=== PATIENT | male | born 1930 | race Two or more races ===

== ENCOUNTER 2017-03-02 13:22 | Inpatient (IN) | payer OTHER, MEDICAID ==
[~2017-03-02] VITALS: Ht 162.6 cm; Wt 63.0 kg
[2017-03-02 13:32] VITALS: BP 112/86
[2017-03-02 14:09] LABS: HEMATOCRIT 40.7 % (42.0-52.0); HEMOGLOBIN 13.4 G/DL (14.2-18.0); MEAN CORPUSCULAR VOLUME 93 FL (80-99); PLATELET COUNT 161 K/UL (150-450); RED BLOOD COUNT 4.38 M/UL (4.70-6.10); RED CELL DISTRIBUTION WIDTH 12.4 % (11.6-14.8); WHITE BLOOD COUNT 5.8 K/UL (4.8-10.8)
[2017-03-02] MEDS ORDERED: SandoSTATIN 50mcg Inj SUBQ ONE (14:15)
[2017-03-02 14:21] LABS: ANION GAP 8 mmol/L (5-15); BLOOD UREA NITROGEN 23 mg/dL (7-18); CALCIUM 7.6 MG/DL (8.5-10.1); CARBON DIOXIDE 26 MMOL/L (21-32); CHLORIDE 104 MMOL/L (98-107); CREATININE 1.3 MG/DL (0.55-1.30); POTASSIUM 4.1 MMOL/L (3.5-5.1); SODIUM 138 MMOL/L (136-145)
[2017-03-02 14:26] LABS: ALANINE AMINOTRANSFERASE 13 U/L (12-78); ALBUMIN 2.6 G/DL (3.4-5.0); ALBUMIN/GLOBULIN RATIO 0.6 (1.0-2.7); ALKALINE PHOSPHATASE 71 U/L (46-116); ASPARTATE AMINO TRANSFERASE 43 U/L (15-37); BILIRUBIN,TOTAL 0.5 MG/DL (0.2-1.0)
--- NOTE | 2017-03-02 14:39 | Emergency Room Report ---
History of Present Illness General Chief Complaint: Abnormal Labs Source: Patient, Family Member, Medical Record Present Illness HPI Patient is a 86-year-old male brought in by EMS after low blood sugar. Patient was noted be altered initially with a sugar in the 30s the patient had been given D50 by EMS. Patient had cough for long time. He had been taking oral medications for blood sugar. He had improvement to baseline after D50. He had less than usual food consumption. Allergies: Coded Allergies: No Known Allergies (Verified , 09/12/10) Patient History Reviewed Nursing Documentation: PMH: Agreed, PSxH: Agreed Nursing Documentation-PMH Past Medical History: No History, Except For Hx Diabetes: Yes Review of Systems All Other Systems: negative except mentioned in HPI Physical Exam Vital Signs Date Time Temp Pulse Resp B/P (MAP) Pulse Ox O2 Delivery O2 Flow Rate FiO2 03/02/17 13:15 98.2 82 16 112/86 98 Room Air Sp02 EP Interpretation: reviewed, normal General Appearance: normal inspection, well appearing, no apparent distress, alert Head: atraumatic ENT: normal ENT inspection, hearing grossly normal, normal voice Neck: normal inspection, full range of motion, supple, no bony tend Respiratory: normal inspection, lungs clear, normal breath sounds, no respiratory distress, no retraction, no wheezing Cardiovascular #1: regular rate, rhythm, no edema Gastrointestinal: normal inspection, normal bowel sounds, non tender, soft, no guarding, no hernia Genitourinary: no CVA tenderness Musculoskeletal: normal inspection, back normal, normal range of motion Neurologic: normal inspection, alert, responsive, speech normal Psychiatric: normal inspection, judgement/insight normal, mood/affect normal Skin: normal inspection, normal color, no rash Medical Decision Making Diagnostic Impression: Primary Impression: Hypoglycemia secondary to sulfonylurea Additional Impression: Chronic lung disease ER Course Patient 86-year-old male who low blood sugar. Differential diagnoses include was not limited to dietary noncompliance, medication overdose, sepsis, renal failure, among others.Because of complexity of patient's case laboratory testing and imaging studies were ordered.Patient was given oral glucose containing fluids. The patient was noted to have baseline mental status. Patient noted have decreased the blood sugar to 90 after the juice. Patient was given Sandostatin. The patient will likely require inpatient observation due to the recurrent drop in blood sugar and poor by mouth intake. Patient was started on a D10 drip. Dr. Ferrari was contacted for inpatient management due to panel physician. Labs Test 03/02/17 13:54 White Blood Count 5.8 K/UL (4.8-10.8) Red Blood Count 4.38 M/UL (4.70-6.10) Hemoglobin 13.4 G/DL (14.2-18.0) Hematocrit 40.7 % (42.0-52.0) Mean Corpuscular Volume 93 FL (80-99) Mean Corpuscular Hemoglobin 30.6 PG (27.0-31.0) Mean Corpuscular Hemoglobin Concent 32.9 G/DL (32.0-36.0) Red Cell Distribution Width 12.4 % (11.6-14.8) Platelet Count 161 K/UL (150-450) Mean Platelet Volume 7.4 FL (6.5-10.1) Neutrophils (%) (Auto) % (45.0-75.0) Lymphocytes (%) (Auto) % (20.0-45.0) Monocytes (%) (Auto) % (1.0-10.0) Eosinophils (%) (Auto) % (0.0-3.0) Basophils (%) (Auto) % (0.0-2.0) Differential Total Cells Counted 100 Neutrophils % (Manual) 81 % (45-75) Lymphocytes % (Manual) 4 % (20-45) Monocytes % (Manual) 7 % (1-10) Eosinophils % (Manual) 0 % (0-3) Basophils % (Manual) 0 % (0-2) Band Neutrophils 8 % (0-8) Platelet Estimate Adequate Platelet Morphology Normal Red Blood Cell Morphology Normal Sodium Level 138 MMOL/L (136-145) Potassium Level 4.1 MMOL/L (3.5-5.1) Chloride Level 104 MMOL/L (98-107) Carbon Dioxide Level 26 MMOL/L (21-32) Anion Gap 8 mmol/L (5-15) Blood Urea Nitrogen 23 mg/dL (7-18) Creatinine 1.3 MG/DL (0.55-1.30) Estimat Glomerular Filtration Rate mL/min (>60) Glucose Level 95 MG/DL (74-106) Calcium Level 7.6 MG/DL (8.5-10.1) Total Bilirubin 0.5 MG/DL (0.2-1.0) Aspartate Amino Transf (AST/SGOT) 43 U/L (15-37) Alanine Aminotransferase (ALT/SGPT) 13 U/L (12-78) Alkaline Phosphatase 71 U/L (46-116) Troponin I 0.001 ng/mL (0.000-0.056) Total Protein 7.0 G/DL (6.4-8.2) Albumin 2.6 G/DL (3.4-5.0) Globulin 4.4 g/dL Albumin/Globulin Ratio 0.6 (1.0-2.7) EKG Diagnostic Results Rate: normal Rhythm: NSR ST Segments: no acute changes Last Vital Signs Date Time Temp Pulse Resp B/P (MAP) Pulse Ox O2 Delivery O2 Flow Rate FiO2 03/02/17 13:32 98.2 16 112/86 98 Room Air 03/02/17 13:15 82 Status: unchanged Disposition: ADMITTED INPATIENT Condition: Serious Germán Kong Mar 02, 2017 14:39
[2017-03-02] MEDS ORDERED: D5NS 1,000 ML IV SCH (15:30)
[2017-03-02] MEDS ORDERED: cefTRIAXone 1 GM in NS 55 ML IVPB ONE (16:00)
[2017-03-02] MEDS ORDERED: Dextrose 10% 1,000 ML IV SCH (16:30)
[2017-03-02] MEDS ORDERED: GLIPIZIDE10 MG PO (17:41)
[2017-03-02] MEDS ORDERED: METFORMIN HCL500 M5 PO (17:42)
[2017-03-02 17:43] VITALS: BP 114/79
[2017-03-02] MEDS ORDERED: Zolpidem 5mg tab ORAL PRN (18:45)
[2017-03-02] MEDS ORDERED: Albuterol/Ipratropium 3ml neb HHN PRN (18:45)
[2017-03-02 20:00] VITALS: BP 120/60
[2017-03-02] MEDS: Heparin 5000 units/ml inj SUBQ SCH (20:16)
[2017-03-02] MEDS: D5 1/2NS 1,000 ML IV SCH (20:16)
[2017-03-02 21:00] VITALS: BP 120/60
[2017-03-02] MEDS: NovoLOG Insulin Flexpen SUBQ SCH (21:16)
[2017-03-03] VITALS: BP 94/58
[2017-03-03 04:00] VITALS: BP 129/61
[2017-03-03] MEDS: NovoLOG Insulin Flexpen SUBQ SCH ×4 (05:42→21:00)
[2017-03-03 07:32] LABS: HEMOGLOBIN 13.4 G/DL (14.2-18.0); MEAN CORPUSCULAR VOLUME 91 FL (80-99); PLATELET COUNT 145 K/UL (150-450); RED CELL DISTRIBUTION WIDTH 12.3 % (11.6-14.8); WHITE BLOOD COUNT 5.2 K/UL (4.8-10.8)
[2017-03-03 07:40] LABS: ANION GAP 6 mmol/L (5-15); BLOOD UREA NITROGEN 16 mg/dL (7-18); CALCIUM 7.1 MG/DL (8.5-10.1); CARBON DIOXIDE 27 MMOL/L (21-32); CHLORIDE 100 MMOL/L (98-107); CREATININE 1.2 MG/DL (0.55-1.30); POTASSIUM 3.7 MMOL/L (3.5-5.1); SODIUM 133 MMOL/L (136-145)
[2017-03-03 08:00] VITALS: BP 128/75
[2017-03-03] MEDS: Heparin 5000 units/ml inj SUBQ SCH ×2 (09:00→21:00)
[2017-03-03] MEDS: D5 1/2NS 1,000 ML IV SCH ×2 (09:11→21:55)
--- NOTE | 2017-03-03 09:11 | History & Physical ---
History and Physical History & Physicial 86 year old male presents with persistent hypoglycemia. patient given repeated doses of D50 in the ER but sugars repeatedly dropped. Patient with chronic lung disease as well and noted to have chronic congestion. Last night, patient reportedly had a fever. patient was admitted due to persistent hypoglycemia. patient care discussed and reviewed. patient has had no change in diet and confirms medication schedule. no fevers or chills. patient denies recent ill contacts. no chest pain, diarrhea, vomiting long d/w son- who cares for him; has been weak and incontinent H Diabetes Chronic lung disease Dementia incontinence MEDS/ALLERGIES: noted FHX; otherwise not contributory to the above ROS otherwise negative and reviewed- except for worsening dementia, weakness, incontinence PHYSICAL WDWN NAD coarse breath sounds bilaterally with scattered rhonchi [id number] without MRG NABS nontender no HSM no CCE scrotal enlargement nonfocal weak slightly confused Labs Test 03/02/17 13:54 03/02/17 17:00 03/02/17 17:15 03/03/17 06:05 White Blood Count 5.8 K/UL (4.8-10.8) 5.2 K/UL (4.8-10.8) Red Blood Count 4.38 M/UL (4.70-6.10) 4.30 M/UL (4.70-6.10) Hemoglobin 13.4 G/DL (14.2-18.0) 13.4 G/DL (14.2-18.0) Hematocrit 40.7 % (42.0-52.0) 39.0 % (42.0-52.0) Mean Corpuscular Volume 93 FL (80-99) 91 FL (80-99) Mean Corpuscular Hemoglobin 30.6 PG (27.0-31.0) 31.2 PG (27.0-31.0) Mean Corpuscular Hemoglobin Concent 32.9 G/DL (32.0-36.0) 34.4 G/DL (32.0-36.0) Red Cell Distribution Width 12.4 % (11.6-14.8) 12.3 % (11.6-14.8) Platelet Count 161 K/UL (150-450) 145 K/UL (150-450) Mean Platelet Volume 7.4 FL (6.5-10.1) 7.6 FL (6.5-10.1) Neutrophils (%) (Auto) % (45.0-75.0) % (45.0-75.0) Lymphocytes (%) (Auto) % (20.0-45.0) % (20.0-45.0) Monocytes (%) (Auto) % (1.0-10.0) % (1.0-10.0) Eosinophils (%) (Auto) % (0.0-3.0) % (0.0-3.0) Basophils (%) (Auto) % (0.0-2.0) % (0.0-2.0) Differential Total Cells Counted 100 100 Neutrophils % (Manual) 81 % (45-75) 83 % (45-75) Lymphocytes % (Manual) 4 % (20-45) 10 % (20-45) Monocytes % (Manual) 7 % (1-10) 5 % (1-10) Eosinophils % (Manual) 0 % (0-3) 0 % (0-3) Basophils % (Manual) 0 % (0-2) 0 % (0-2) Band Neutrophils 8 % (0-8) 2 % (0-8) Platelet Estimate Adequate Adequate Platelet Morphology Normal Normal Red Blood Cell Morphology Normal Normal Sodium Level 138 MMOL/L (136-145) 133 MMOL/L (136-145) Potassium Level 4.1 MMOL/L (3.5-5.1) 3.7 MMOL/L (3.5-5.1) Chloride Level 104 MMOL/L (98-107) 100 MMOL/L (98-107) Carbon Dioxide Level 26 MMOL/L (21-32) 27 MMOL/L (21-32) Anion Gap 8 mmol/L (5-15) 6 mmol/L (5-15) Blood Urea Nitrogen 23 mg/dL (7-18) 16 mg/dL (7-18) Creatinine 1.3 MG/DL (0.55-1.30) 1.2 MG/DL (0.55-1.30) Estimat Glomerular Filtration Rate mL/min (>60) mL/min (>60) Glucose Level 95 MG/DL (74-106) 72 MG/DL (74-106) Calcium Level 7.6 MG/DL (8.5-10.1) 7.1 MG/DL (8.5-10.1) Total Bilirubin 0.5 MG/DL (0.2-1.0) Aspartate Amino Transf (AST/SGOT) 43 U/L (15-37) Alanine Aminotransferase (ALT/SGPT) 13 U/L (12-78) Alkaline Phosphatase 71 U/L (46-116) Troponin I 0.001 ng/mL (0.000-0.056) C-Reactive Protein, Quantitative 25.9 mg/dL (0.00-0.90) Total Protein 7.0 G/DL (6.4-8.2) Albumin 2.6 G/DL (3.4-5.0) Globulin 4.4 g/dL Albumin/Globulin Ratio 0.6 (1.0-2.7) Lactic Acid Level 1.80 mmol/L (0.66-2.22) Hemoglobin A1c 6.5 % (4.3-6.0) IMPRESSION persistent hypoglycemia, likely exogenous due to medications chronic lung disease fever, possibly with superimposed infection dementia urinary incontinence PLAN d5ns iv hydration monitor blood sugars hold oral hypoglycemic agents IV antibiotics respiratory care oxygen monitor for change and improvement CT chest PT evaluation impression, plan, and exam edited and reviewed in detail care discussed with TAMMY RUIZ Mar 03, 2017 09:11
--- NOTE | 2017-03-03 11:34 | Diagnostic Imaging Report ---
Indication: Shortness of breath Technique: XRAY Chest 1v Comparison: None Findings: There is bilateral interstitial opacities and reticular markings of the peripheral predominance. May be some volume loss versus poor respiratory effort. There is no pleural effusion. No pneumothorax. Heart size appears within normal limits. No acute osseous abnormality seen. Surgical clips noted in the right upper quadrant likely related to prior cholecystectomy. Impression: Increased reticular markings in the periphery bilaterally suggesting interstitial lung disease. Superimposed pneumonia is not entirely excluded. Correlate clinically. High-resolution CT scan of the chest recommended to better assessment. Study obtained via the emergency department however patient admitted to the hospital at time of final dictation.
[2017-03-03 12:00] VITALS: BP 100/55
[2017-03-03 16:00] VITALS: BP 103/62
[2017-03-03] MEDS: cefTRIAXone 1 GM in D5W 55 ML IVPB SCH (17:29)
[2017-03-03 21:00] VITALS: BP 142/56
[2017-03-03] MEDS ORDERED: Flu Vaccine Quadrivalent 0.5ml IM ONE (22:00)
[2017-03-03] MEDS ORDERED: Tubing IV Secondary IV ONE (22:50)
[2017-03-03 23:01] LABS: APPEARANCE,URINE CLEAR; BILIRUBIN, URINE NEGATIVE (NEGATIVE); GLUCOSE, URINE (UA) 2+ (NEGATIVE); KETONES,URINE NEGATIVE (NEGATIVE); LEUKOCYTE ESTERASE ,URINE NEGATIVE (NEGATIVE); NITRITE,URINE NEGATIVE (NEGATIVE); PH,URINE 7 (4.5-8.0); PROTEIN,URINE 2+ (NEGATIVE); UROBILINOGEN,URINE 4 MG/DL (0.0-1.0)
[2017-03-03 23:03] LABS: COLOR,URINE YELLOW
[2017-03-04] VITALS: BP 105/64
[2017-03-04 04:00] VITALS: BP 94/54
[2017-03-04] MEDS: NovoLOG Insulin Flexpen SUBQ SCH ×4 (06:20→20:15)
[2017-03-04 08:15] VITALS: BP 86/46
--- NOTE | 2017-03-04 08:48 | General Progress Note ---
Assessment/Plan Assessment/Plan IMPRESSION persistent hypoglycemia, likely exogenous due to medications chronic lung disease fever, possibly with superimposed infection dementia urinary incontinence BPH PLAN d5ns iv hydration- hope to dc in am monitor blood sugars hold oral hypoglycemic agents IV antibiotics empiric respiratory care oxygen monitor for change and improvement CT chest pending PT evaluation d/w family as to plan and home dc impression, plan, and exam edited and reviewed in detail care discussed with RN Subjective Allergies: Coded Allergies: No Known Allergies (Verified , 09/12/10) Subjective blood pressure still low still confused bs better Objective Last 24 Hour Vital Signs Date Time Temp Pulse Resp B/P (MAP) Pulse Ox O2 Delivery O2 Flow Rate FiO2 03/04/17 08:15 97.3 79 20 86/46 96 Room Air 03/04/17 04:00 97.9 61 21 94/54 92 03/04/17 01:41 97.9 03/04/17 00:00 102.0 98 20 105/64 92 03/03/17 21:00 100.4 83 21 142/56 95 03/03/17 20:11 91 20 98 Nasal Cannula 2.0 28 03/03/17 20:03 89 24 Nasal Cannula 2.0 28 03/03/17 20:03 89 24 93 Nasal Cannula 2.0 28 03/03/17 16:00 99.1 74 18 103/62 94 Nasal Cannula 2.0 03/03/17 12:00 97.3 81 20 100/55 94 Nasal Cannula 2.0 Intake and Output 03/03/17 03/04/17 19:00 07:00 Intake Total 375 ml 825 ml Output Total 1200 ml Balance 375 ml -375 ml Intake Oral 300 ml IV Total 75 ml 825 ml Output Urine Total 1200 ml # Voids 3 # Bowel Movements 1 Laboratory Tests 03/03/17 22:30: Urine Color Yellow, Urine Appearance Clear, Urine pH 7, Urine Specific [place] 1.005, Urine Protein 2+H, Urine Glucose (UA) 2+H, Urine Ketones Negative, Urine Occult Blood 2+H, Urine Nitrite Negative, Urine Bilirubin Negative, Urine Urobilinogen 4H, Urine Leukocyte Esterase Negative, Urine RBC 0-2H, Urine WBC 0- 2, Urine Squamous Epithelial Cells None, Urine Bacteria None Height (Feet): 5 Height (Inches): 4.00 Weight (Pounds): 139 Objective WDWN NAD clear breath sounds bilaterally without rhonchi or wheeze [id number] without MRG NABS nontender no HSM no CCE nonfocal confused TAMMY NOGUERA Mar 04, 2017 08:48
[2017-03-04] MEDS: Heparin 5000 units/ml inj SUBQ SCH ×2 (09:00→20:15)
[2017-03-04 12:07] VITALS: BP 105/63
[2017-03-04] MEDS: D5 1/2NS 1,000 ML IV SCH (12:46)
[2017-03-04 16:15] VITALS: BP 128/66
[2017-03-04] MEDS: cefTRIAXone 1 GM in D5W 55 ML IVPB SCH (18:25)
[2017-03-04 20:00] VITALS: BP 116/71
[2017-03-05] VITALS: BP 107/67
[2017-03-05] MEDS: D5 1/2NS 1,000 ML IV SCH (00:47)
[2017-03-05 04:00] VITALS: BP 102/59
[2017-03-05] MEDS: NovoLOG Insulin Flexpen SUBQ SCH ×4 (05:48→20:32)
[2017-03-05 08:00] VITALS: BP 102/60
[2017-03-05] MEDS: Heparin 5000 units/ml inj SUBQ SCH ×2 (09:00→21:00)
--- NOTE | 2017-03-05 09:01 | General Progress Note ---
Assessment/Plan Assessment/Plan IMPRESSION hypoglycemia, likely exogenous due to medications chronic lung disease fever, possibly with superimposed infection dementia urinary incontinence BPH PLAN d5ns iv hydration- dc today and monitor monitor blood sugars hold oral hypoglycemic agents IV antibiotics empiric- po in am respiratory care oxygen monitor for change and improvement CT chest today PT evaluation d/w family as to plan and home dc- in am if stable impression, plan, and exam edited and reviewed in detail care discussed with RN Subjective Allergies: Coded Allergies: No Known Allergies (Verified , 09/12/10) Subjective blood pressure better less confused bs stable Objective Last 24 Hour Vital Signs Date Time Temp Pulse Resp B/P (MAP) Pulse Ox O2 Delivery O2 Flow Rate FiO2 03/05/17 08:00 97.5 76 19 102/60 95 Nasal Cannula 2.0 03/05/17 04:00 98.0 68 20 102/59 93 Nasal Cannula 2.0 03/05/17 01:46 98.8 03/05/17 01:46 98.8 03/05/17 00:00 100.0 86 22 107/67 97 03/05/17 00:00 Nasal Cannula 2.0 03/04/17 20:00 98.4 82 20 116/71 95 03/04/17 20:00 Nasal Cannula 2.0 03/04/17 19:53 Nasal Cannula 2.0 28 03/04/17 19:53 93 Nasal Cannula 2.0 28 03/04/17 19:52 87 16 Nasal Cannula 2.0 28 03/04/17 16:15 98.7 77 19 128/66 99 Nasal Cannula 2.0 03/04/17 12:07 97.1 83 21 105/63 97 Nasal Cannula 2.0 03/04/17 09:30 77 16 Nasal Cannula 2.0 28 Intake and Output 03/04/17 03/05/17 19:00 07:00 Intake Total 1860 ml 945 ml Balance 1860 ml 945 ml Intake Oral 960 ml 120 ml IV Total 900 ml 825 ml # Voids 2 3 # Bowel Movements 4 Height (Feet): 5 Height (Inches): 4.00 Weight (Pounds): 139 Objective WDWN NAD clear breath sounds bilaterally without rhonchi or wheeze [id number] without MRG NABS nontender no HSM no CCE nonfocal more alert and conversant TAMMY NOGUERA Mar 05, 2017 09:01
[2017-03-05 11:50] VITALS: BP 106/57
[2017-03-05 16:00] VITALS: BP 100/64
[2017-03-05] MEDS: cefTRIAXone 1 GM in D5W 55 ML IVPB SCH (17:34)
[2017-03-05 20:00] VITALS: BP 108/60
--- NOTE | 2017-03-05 21:07 | Diagnostic Imaging Report ---
Indication: Shortness of breath Technique: Noncontrast CT scan of the chest performed utilizing automated exposure control. Axial, coronal and sagittal reformats. Comparison: No prior chest CT available for comparison. Correlation made to images of the lower lungs from CT of the abdomen and pelvis 09/12/2010. Findings: There is pulmonary fibrosis with a peripheral and basilar predominance. There are stacked cystic spaces at the periphery compatible with honeycombing. There is some foci of traction bronchiectasis in the lower lobes. These findings have progressed since 2010. There is more dense opacity in the bilateral lower lobes which may be related to scarring however superimposed pneumonia is not entirely excluded. There is no pneumothorax. No pleural effusion. The heart is within normal limits for size. There is no pericardial effusion. Coronary arterial calcifications are noted. The thoracic aorta is normal in caliber with mild atherosclerotic calcifications. Main pulmonary artery is slightly enlarged measuring 3.3 cm in diameter. This is likely reflective of pulmonary artery hypertension likely related to interstitial lung disease. Multiple small nonspecific prominent mediastinal lymph nodes are noted, possibly reactive in etiology. Imaged thyroid is unremarkable in appearance. Patient is status post cholecystectomy. Nonspecific bilateral perinephric stranding is partially visualized. There are multilevel degenerative changes in the thoracic spine. No acute osseous abnormality seen. Impression: * Pulmonary fibrosis with evidence of honeycombing. These findings are progressed compared to 09/12/2010. * More dense opacification in the bilateral lower lobes may be related to scarring however superimposed pneumonia not excluded. * Nonspecific prominent mediastinal lymph nodes. * Enlarged main pulmonary artery suggestive of pulmonary hypertension, likely related to interstitial lung disease. * Coronary artery calcifications. * Status post cholecystectomy.
[2017-03-06] VITALS: BP_SYST 102; BP_SYST 138; BP_DIAS 56; BP_DIAS 76
[2017-03-06 04:00] VITALS: BP 107/64
[2017-03-06] MEDS: NovoLOG Insulin Flexpen SUBQ SCH ×4 (05:43→21:27)
--- NOTE | 2017-03-06 07:34 | General Progress Note ---
Assessment/Plan Assessment/Plan IMPRESSION hypoglycemia, likely exogenous due to medications chronic lung disease- extensive pulmonary fibrosis fever, possibly with superimposed infection; negative cultures dementia urinary incontinence BPH possible pulmonary hypertension PLAN dc planning IV antibiotics empiric- likely can dc with significant improvement respiratory care oxygen monitor for change and improvement CT chest reviewed d/w family and plan to dc home with follow up impression, plan, and exam edited and reviewed in detail care discussed with RN Subjective Allergies: Coded Allergies: No Known Allergies (Verified , 09/12/10) Subjective improved CT chest noted Objective Last 24 Hour Vital Signs Date Time Temp Pulse Resp B/P (MAP) Pulse Ox O2 Delivery O2 Flow Rate FiO2 03/06/17 04:00 98.0 71 20 107/64 97 Nasal Cannula 2.0 03/06/17 00:00 98.1 79 18 102/56 97 Room Air 03/05/17 20:58 Nasal Cannula 2.0 28 03/05/17 20:58 95 Nasal Cannula 2.0 28 03/05/17 20:57 86 18 Nasal Cannula 2.0 28 03/05/17 20:00 98.1 76 18 108/60 97 Room Air 03/05/17 16:00 97.9 74 19 100/64 96 Room Air 03/05/17 13:30 90 18 Nasal Cannula 2.0 28 03/05/17 13:30 93 Nasal Cannula 2.0 28 03/05/17 13:30 Nasal Cannula 2.0 28 03/05/17 11:50 97.5 78 19 106/57 98 Room Air 03/05/17 08:00 97.5 76 19 102/60 95 Nasal Cannula 2.0 Intake and Output 03/05/17 03/06/17 19:00 07:00 Intake Total 725 ml 100 ml Balance 725 ml 100 ml Intake Oral 240 ml 100 ml IV Total 485 ml # Voids 3 # Bowel Movements 1 Height (Feet): 5 Height (Inches): 4.00 Weight (Pounds): 139 Objective WDWN NAD crackles at bases reduced air entry [id number] without MRG NABS nontender no HSM no CCE nonfocal more alert and conversant TAMMY NOGUERA Mar 06, 2017 07:34
[2017-03-06 08:41] VITALS: BP 98/59
[2017-03-06] MEDS: Heparin 5000 units/ml inj SUBQ SCH ×2 (10:18→21:00)
[2017-03-06 11:29] VITALS: BP 105/50
[2017-03-06] MEDS: cefTRIAXone 1 GM in D5W 55 ML IVPB SCH (17:14)
[2017-03-06 20:00] VITALS: BP 102/63
[2017-03-07] VITALS: BP 103/71
[2017-03-07 04:00] VITALS: BP 110/83
[2017-03-07] MEDS: NovoLOG Insulin Flexpen SUBQ SCH ×2 (05:54→12:23)
[2017-03-07] MEDS ORDERED: sitaGLIPtin 50mg tab ORAL SCH (06:30)
[2017-03-07 08:00] VITALS: BP 103/75
[2017-03-07] MEDS: Heparin 5000 units/ml inj SUBQ SCH (09:00)
--- NOTE | 2017-03-07 11:21 | General Progress Note ---
Assessment/Plan Assessment/Plan IMPRESSION hypoglycemia, likely exogenous due to medications chronic lung disease- extensive pulmonary fibrosis fever, possibly with superimposed infection; negative cultures dementia urinary incontinence BPH possible pulmonary hypertension PLAN dc today guy on discharge no further antibiotics nteed d/w family and plan to dc home with follow up impression, plan, and exam edited and reviewed in detail care discussed with RN Subjective Allergies: Coded Allergies: No Known Allergies (Verified , 09/12/10) Subjective d/w family stable at present Objective Last 24 Hour Vital Signs Date Time Temp Pulse Resp B/P (MAP) Pulse Ox O2 Delivery O2 Flow Rate FiO2 03/07/17 09:19 96 Nasal Cannula 2.0 28 03/07/17 09:19 Nasal Cannula 2.0 28 03/07/17 08:00 97.5 76 18 103/75 97 Nasal Cannula 2.0 03/07/17 04:00 97.7 117 20 110/83 95 03/07/17 00:00 97.9 85 18 103/71 95 03/06/17 21:15 Nasal Cannula 2.0 28 03/06/17 21:15 95 Nasal Cannula 2.0 28 03/06/17 21:15 85 18 Nasal Cannula 2.0 28 03/06/17 20:00 97.7 80 20 102/63 97 03/06/17 11:29 98.1 90 18 105/50 97 Intake and Output 03/06/17 03/07/17 19:00 07:00 Intake Total 1010 ml Output Total 400 ml Balance 1010 ml -400 ml Intake Oral 900 ml IV Total 110 ml Output Urine Total 400 ml # Voids 4 Height (Feet): 5 Height (Inches): 4.00 Weight (Pounds): 139 Objective WDWN NAD crackles at bases reduced air entry [id number] without MRG NABS nontender no HSM no CCE nonfocal more alert and conversant TAMMY NOGUERA Mar 07, 2017 11:21
[2017-03-07 11:46] VITALS: BP 114/75
--- NOTE | 2017-03-08 21:19 | Discharge Summary ---
Discharge Summary Hospital Course Date of Admission Mar 02, 2017 at 16:10 Date of Discharge Mar 07, 2017 at 15:53 Admitting Diagnosis Hypoglycemia HPI James Alcantar is a 86 year old male who was admitted on Mar 02, 2017 at 16:10 for Hypoglycemia Hospital Course [id number] Discharge Discharge Disposition Patient was discharged to Home with Home Health(06) Discharge Diagnoses: Cara Vázquez NP Mar 08, 2017 21:19
--- NOTE | 2017-03-09 | Discharge Summary 2 SIG ---
DATE OF ADMISSION: 03/02/2017 DATE OF DISCHARGE: 03/07/2017 BRIEF HOSPITAL COURSE: The patient is an 86-year-old male, who presented with persistent hypoglycemia plus history of diabetes mellitus, chronic lung disease, dementia. At ED, he was given repeated doses of D50, however, he had persistent hypoglycemia. He has chronic lung disease and was noted to have chronic congestion. He was having fevers. On evaluation at ED labs showed no leukocytosis. He was admitted for persistent hypoglycemia. All oral hypoglycemics were discontinued. He was given D5 NS and IV hydration and was placed on O2 support and respiratory care. He was having fevers and was placed empirically on ceftriaxone. CT of chest showed pulmonary fibrosis with evidence of honeycombing, progressed compared to prior imaging. There was enlarged main pulmonary artery suggestive of pulmonary hypertension, likely related to interstitial lung disease. Blood culture did not isolate any growth. Urine culture was negative. Blood sugar stabilized. A1c was 6.5. He was given PT evaluation and mobility. He was eventually discharged home with home health to resume Januvia upon discharge. FINAL DIAGNOSES: 1. Hypoglycemia, likely exogenous from medication. 2. Chronic lung disease, extensive pulmonary fibrosis. 3. Fever, possibly with superimposed infection, however, negative cultures. 4. Dementia. 5. Urinary incontinence. 6. Benign prostatic hypertrophy. 7. Pulmonary hypertension. DISPOSITION: The patient was discharged home with home health. DISCHARGE MEDICATIONS: Refer to medication list. DISCHARGE INSTRUCTIONS: Follow up as an outpatient in a week. Tobin Ferrari M.D. I have been assigned to dictate discharge summary on this account and I was not involved in the patient's management. Cara Vázquez N.P. DR: Garcia JOB#: [id number] CC: DENICE
== END 2017-03-07 15:53 | disposition home or self-care (01) | DRG 639 ==
LOC: EDBD 13:22 → EMR 13:52 → 4E 16:10 → EDBEDREQ 16:50 → 4E 03-06 15:37
DX: E11.649 Type 2 diabetes mellitus with hypoglycemia without coma (principal); I27.20 Pulmonary hypertension, unspecified; F03.90 Unspecified dementia, unspecified severity, without behavioral disturbance, psychotic disturbance, mood disturbance, and anxiety; J84.10 Pulmonary fibrosis, unspecified; J98.4 Other disorders of lung; N40.1 Benign prostatic hyperplasia with lower urinary tract symptoms; N39.498 Other specified urinary incontinence; Z79.84 Long term (current) use of oral hypoglycemic drugs; T38.3X5A Adverse effect of insulin and oral hypoglycemic [antidiabetic] drugs, initial encounter; Y92.89 Other specified places as the place of occurrence of the external cause; Z23 Encounter for immunization
CPT/HCPCS: 36415; 36600; 71010; 71250; 80048; 80053; 81001; 82803; 82962; 83036; 83605; 84484; 85007; 85025; 86140; 87040; 87086; 90630; 94640; 94664; 94760; 99285; J1815; J7620

== ENCOUNTER 2017-03-15 17:16 | Inpatient (IN) | payer OTHER, MEDICAID ==
[~2017-03-15] VITALS: Ht 182.9 cm; Wt 70.3 kg
[~2017-03-15 17:16] MED LIST: GLIPIZIDE10 MG PO; METFORMIN HCL500 M5 PO
[2017-03-15 18:30] VITALS: BP 124/80
--- NOTE | 2017-03-15 18:41 | Emergency Room Report ---
History of Present Illness General Chief Complaint: General Complaint Source: Patient, Family Member Present Illness HPI 86-year-old male, hypertension, diabetes, COPD/pulmonary fibrosis, presenting with 2 days of generalized weakness, shortness of breath. History is obtained by [id number]. States that patient unable to walk without getting short of breath. Also had very fast heart rate that site he was sent to the emergency room. He had a recent hospitalization for hypoglycemia, at that time they did a CT scan which showed pulmonary fibrosis. Patient has a long former history of smoking. Allergies: Coded Allergies: No Known Allergies (Verified , 09/12/10) Patient History Past Medical History: see triage record Past Surgical History: none Pertinent Family History: none Reviewed Nursing Documentation: PMH: Agreed, PSxH: Agreed Nursing Documentation-PMH Hx Cardiac Problems: No Hx Diabetes: Yes Hx Cancer: No Hx Gastrointestinal Problems: No Hx Neurological Problems: Yes Hx Alzheimer's Disease: Yes Review of Systems All Other Systems: negative except mentioned in HPI Physical Exam Vital Signs Date Time Temp Pulse Resp B/P (MAP) Pulse Ox O2 Delivery O2 Flow Rate FiO2 03/15/17 17:46 97.3 113 20 133/74 89 Room Air Sp02 EP Interpretation: abnormal General Appearance: alert, GCS 15, non-toxic, moderate distress Head: normocephalic, atraumatic Eyes: bilateral eye normal inspection, bilateral eye PERRL, bilateral eye EOMI ENT: normal ENT inspection, normal pharynx, normal voice, moist mucus membranes Neck: normal inspection, full range of motion, supple Respiratory: other - coarse breath sounds b/l. tachypneic Cardiovascular #1: no edema, tachycardia Cardiovascular #2: 2+ radial (R), 2+ radial (L) Gastrointestinal: normal inspection, non tender, soft, non-distended, no guarding Genitourinary: no CVA tenderness Musculoskeletal: normal inspection, back normal, normal range of motion, non- tender Neurologic: oriented x3, responsive, motor strength/tone normal Psychiatric: normal inspection Skin: normal inspection, normal color, no rash, warm/dry, well hydrated, normal turgor Procedures Critical Care Time Critical Care Time 40 minutes of CC time 86-year-old male, pulmonary fibrosis, weakness, shortness of breath VS: Tachycardic, tachypnea, hypoxic PLAN: IV access, labs, lactate, troponin, Blood/Urine Cx, Abx, IVF Anticipate admission to Tele vs. GL[facility] CC time also includes review of labs, review of EMR, discussion with family and paperwork from SNF, d/w hospitalist CC could include dosing of pressors, additional Abx CC time does not include procedures Medical Decision Making Diagnostic Impression: Primary Impression: Hypoxia Additional Impressions: Pulmonary fibrosis HCAP (healthcare-associated pneumonia) ER Course 86-year-old male, history of pulmonary fibrosis and COPD, presenting with shortness of breath, tachycardia DDX: COPD exacerbation/progression of lung fibrosis, ACS, pneumonia Plan: IV access, quality assurance monitor final, O2 nasal cannula, EKG, CXR obtain basic labs including blood gas, troponin, Will consider BIPAP for persistent or worsening respiratory status ER course: Patient given Xopenex nebs cannot r/o pna on XR given abx new leukocytosis since last discharge Disposition: Patient is to be admitted to tele D/W hospitalist Dr Ferrari Please note that this Emergency Department Report was dictated using [email or web address] clerk technology software, occasionally this can lead to erroneous entry secondary to interpretation by the dictation equipment. EKG Diagnostic Results EP Interpretation: Yes Rate: tachycardia Rhythm: ?multifocal atrial tachycardia ST Segments: T wave inversions noted in lead 3, aVF, V3, V4 ASA given to patient: No Rhythm Strip EP Interpretation: Yes Rate: 120 Rhythm: multifocal atrial tachycardia Chest X-ray CXR: Ordered: Yes 1 view Indication: Shortness of breath EP interpretation: Yes Interpretation: Increased marking interstitial, interstitial lung disease, Impression: Interstitial disease, left-sided pneumonia cannot be excluded Electronically signed by Lulu Fletcher MD Laboratory Tests Test 03/15/17 18:10 White Blood Count 14.7 K/UL (4.8-10.8) H Red Blood Count 4.98 M/UL (4.70-6.10) Hemoglobin 14.5 G/DL (14.2-18.0) Hematocrit 45.5 % (42.0-52.0) Mean Corpuscular Volume 91 FL (80-99) Mean Corpuscular Hemoglobin 29.1 PG (27.0-31.0) Mean Corpuscular Hemoglobin Concent 31.8 G/DL (32.0-36.0) L Red Cell Distribution Width 12.5 % (11.6-14.8) Platelet Count 449 K/UL (150-450) Mean Platelet Volume 5.1 FL (6.5-10.1) L Neutrophils (%) (Auto) 88.8 % (45.0-75.0) H Lymphocytes (%) (Auto) 3.2 % (20.0-45.0) L Monocytes (%) (Auto) 7.3 % (1.0-10.0) Eosinophils (%) (Auto) 0.0 % (0.0-3.0) Basophils (%) (Auto) 0.6 % (0.0-2.0) Sodium Level 136 MMOL/L (136-145) Potassium Level 4.4 MMOL/L (3.5-5.1) Chloride Level 101 MMOL/L (98-107) Carbon Dioxide Level 25 MMOL/L (21-32) Anion Gap 10 mmol/L (5-15) Blood Urea Nitrogen 20 mg/dL (7-18) H Creatinine 1.0 MG/DL (0.55-1.30) Estimate Glomerular Filtration Rate mL/min (>60) Glucose Level 294 MG/DL (74-106) H Lactic Acid Level Pending Calcium Level 9.5 MG/DL (8.5-10.1) Total Bilirubin 0.8 MG/DL (0.2-1.0) Aspartate Amino Transferase (AST) 20 U/L (15-37) Alanine Aminotransferase (ALT) 20 U/L (12-78) Alkaline Phosphatase 127 U/L (46-116) H Creatine Kinase MB 0.9 NG/ML (0.0-3.6) Troponin I 0.038 ng/mL (0.000-0.056) Pro-B-Type Natriuretic Peptide 476 pg/mL (0-125) H Total Protein 8.3 G/DL (6.4-8.2) H Albumin 2.8 G/DL (3.4-5.0) L Globulin 5.5 g/dL Albumin/Globulin Ratio 0.5 (1.0-2.7) L Last Vital Signs Date Time Temp Pulse Resp B/P (MAP) Pulse Ox O2 Delivery O2 Flow Rate FiO2 03/15/17 17:46 97.3 113 20 133/74 89 Room Air Disposition: ADMITTED INPATIENT Condition: Serious Referrals: NON PHYSICIAN (PCP) Lulu Fletcher M.D. Mar 15, 2017 18:41
[2017-03-15] MEDS ORDERED: Levalbuterol Inh UD 1.25mg/0.5ml HHN ONE (18:45)
--- NOTE | 2017-03-15 19:06 | Diagnostic Imaging Report ---
Indication: Shortness of breath Technique: XRAY Chest 1v Comparison: 03/02/2017 Findings: Extensive bilateral interstitial opacities likely related to interstitial lung disease/pulmonary fibrosis noted on prior CT. No new focal opacity is appreciated. No pneumothorax. Heart size and mediastinal contours are stable. Impression: Extensive interstitial opacities related to known interstitial lung disease/pulmonary fibrosis. No new focal consolidation identified.
[2017-03-15 19:10] LABS: HEMATOCRIT 45.5 % (42.0-52.0); HEMOGLOBIN 14.5 G/DL (14.2-18.0); LYMPHOCYTES % (AUTO) 3.2 % (20.0-45.0); MEAN CORPUSCULAR VOLUME 91 FL (80-99); MONOCYTES % (AUTO) 7.3 % (1.0-10.0); NEUTROPHILS % (AUTO) 88.8 % (45.0-75.0); PLATELET COUNT 449 K/UL (150-450); RED BLOOD COUNT 4.98 M/UL (4.70-6.10); RED CELL DISTRIBUTION WIDTH 12.5 % (11.6-14.8); WHITE BLOOD COUNT 14.7 K/UL (4.8-10.8)
[2017-03-15 19:11] LABS: BASOPHILS % (AUTO) 0.6 % (0.0-2.0)
[2017-03-15 19:14] LABS: ANION GAP 10 mmol/L (5-15); BLOOD UREA NITROGEN 20 mg/dL (7-18); CALCIUM 9.5 MG/DL (8.5-10.1); CARBON DIOXIDE 25 MMOL/L (21-32); CHLORIDE 101 MMOL/L (98-107); POTASSIUM 4.4 MMOL/L (3.5-5.1); SODIUM 136 MMOL/L (136-145)
[2017-03-15 19:29] LABS: ALANINE AMINOTRANSFERASE 20 U/L (12-78); ALBUMIN 2.8 G/DL (3.4-5.0); ALBUMIN/GLOBULIN RATIO 0.5 (1.0-2.7); ALKALINE PHOSPHATASE 127 U/L (46-116); ASPARTATE AMINO TRANSFERASE 20 U/L (15-37); BILIRUBIN,TOTAL 0.8 MG/DL (0.2-1.0); CKMB 0.9 NG/ML (0.0-3.6)
[2017-03-15] MEDS ORDERED: Vancomycin 1gm inj IVPB ONE (19:29)
[2017-03-15 19:30] VITALS: BP 118/78
[2017-03-15] MEDS ORDERED: Cefepime HCl 1 GM in NS 55 ML IV ONE (19:30)
[2017-03-15] MEDS ORDERED: Cefepime 1gm vial ONE (19:30)
[2017-03-15] MEDS ORDERED: Vancomycin 1 GM in NS 275 ML IVPB ONE (19:30)
[2017-03-15 19:50] VITALS: BP 118/78
[2017-03-15 19:50] LABS: APPEARANCE,URINE CLEAR; BILIRUBIN, URINE NEGATIVE (NEGATIVE); GLUCOSE, URINE (UA) 3+ (NEGATIVE); KETONES,URINE 1+ (NEGATIVE); LEUKOCYTE ESTERASE ,URINE NEGATIVE (NEGATIVE); NITRITE,URINE NEGATIVE (NEGATIVE); PH,URINE 5 (4.5-8.0); PROTEIN,URINE 2+ (NEGATIVE); UROBILINOGEN,URINE 1 MG/DL (0.0-1.0)
[2017-03-15 19:52] LABS: COLOR,URINE YELLOW
[2017-03-15 20:50] VITALS: BP 108/77
[2017-03-15 21:55] VITALS: BP 118/76
[2017-03-15 23:05] VITALS: BP 122/73
[2017-03-16] VITALS (11 sets, daily range): BP systolic 110–129; BP diastolic 63–83
[2017-03-16] MEDS ORDERED: dilTIAZem HCl 25mg/5ml Inj IVP ONE (00:45)
[2017-03-16 07:38] LABS: BASOPHILS % (AUTO) 0.6 % (0.0-2.0); EOSINOPHILS % (AUTO) 0.1 % (0.0-3.0); HEMATOCRIT 41.1 % (42.0-52.0); HEMOGLOBIN 13.7 G/DL (14.2-18.0); LYMPHOCYTES % (AUTO) 5.6 % (20.0-45.0); MEAN CORPUSCULAR VOLUME 91 FL (80-99); MONOCYTES % (AUTO) 9.3 % (1.0-10.0); NEUTROPHILS % (AUTO) 84.4 % (45.0-75.0); PLATELET COUNT 451 K/UL (150-450); RED BLOOD COUNT 4.53 M/UL (4.70-6.10); RED CELL DISTRIBUTION WIDTH 12.4 % (11.6-14.8); WHITE BLOOD COUNT 12.4 K/UL (4.8-10.8)
--- NOTE | 2017-03-16 07:43 | Consultation ---
Consult Note Consult Note 86 year old male presents with persistent hypoglycemia recently admitted. patient given recent admission for hypoglycemia and now with recurrence. Patient with chronic lung disease as well and noted to have chronic congestion and had CT with pulmonary fibrosis. Patient with congestion and recurrent pneumonia. patient was admitted due to persistent hypoglycemia. patient care discussed and reviewed. patient altered. no fevers or chills. patient denies recent ill contacts. no chest pain, diarrhea, vomiting PMH Diabetes Chronic lung disease- pulmonary fibrosis Dementia incontinence MEDS/ALLERGIES: noted FHX; otherwise not contributory to the above ROS otherwise negative and reviewed- except for worsening dementia, weakness, incontinence PHYSICAL WDWN NAD coarse breath sounds bilaterally with scattered rhonchi [id number] without MRG NABS nontender no HSM no CCE scrotal enlargement nonfocal weak slightly confused Laboratory Tests Test 03/15/17 18:10 03/15/17 19:20 03/16/17 07:00 White Blood Count 14.7 K/UL (4.8-10.8) H 12.4 K/UL (4.8-10.8) H Red Blood Count 4.98 M/UL (4.70-6.10) 4.53 M/UL (4.70-6.10) L Hemoglobin 14.5 G/DL (14.2-18.0) 13.7 G/DL (14.2-18.0) L Hematocrit 45.5 % (42.0-52.0) 41.1 % (42.0-52.0) L Mean Corpuscular Volume 91 FL (80-99) 91 FL (80-99) Mean Corpuscular Hemoglobin 29.1 PG (27.0-31.0) 30.3 PG (27.0-31.0) Mean Corpuscular Hemoglobin Concent 31.8 G/DL (32.0-36.0) L 33.4 G/DL (32.0-36.0) Red Cell Distribution Width 12.5 % (11.6-14.8) 12.4 % (11.6-14.8) Platelet Count 449 K/UL (150-450) 451 K/UL (150-450) H Mean Platelet Volume 5.1 FL (6.5-10.1) L 5.9 FL (6.5-10.1) L Neutrophils (%) (Auto) 88.8 % (45.0-75.0) H 84.4 % (45.0-75.0) H Lymphocytes (%) (Auto) 3.2 % (20.0-45.0) L 5.6 % (20.0-45.0) L Monocytes (%) (Auto) 7.3 % (1.0-10.0) 9.3 % (1.0-10.0) Eosinophils (%) (Auto) 0.0 % (0.0-3.0) 0.1 % (0.0-3.0) Basophils (%) (Auto) 0.6 % (0.0-2.0) 0.6 % (0.0-2.0) Sodium Level 136 MMOL/L (136-145) Pending Potassium Level 4.4 MMOL/L (3.5-5.1) Pending Chloride Level 101 MMOL/L (98-107) Pending Carbon Dioxide Level 25 MMOL/L (21-32) Pending Anion Gap 10 mmol/L (5-15) Blood Urea Nitrogen 20 mg/dL (7-18) H Pending Creatinine 1.0 MG/DL (0.55-1.30) Pending Estimat Glomerular Filtration Rate mL/min (>60) Pending Glucose Level 294 MG/DL (74-106) H Pending Lactic Acid Level 1.90 mmol/L (0.66-2.22) Calcium Level 9.5 MG/DL (8.5-10.1) Pending Total Bilirubin 0.8 MG/DL (0.2-1.0) Aspartate Amino Transf (AST/SGOT) 20 U/L (15-37) Alanine Aminotransferase (ALT/SGPT) 20 U/L (12-78) Alkaline Phosphatase 127 U/L (46-116) H Creatine Kinase MB 0.9 NG/ML (0.0-3.6) Troponin I 0.038 ng/mL (0.000-0.056) Pro-B-Type Natriuretic Peptide 476 pg/mL (0-125) H Total Protein 8.3 G/DL (6.4-8.2) H Albumin 2.8 G/DL (3.4-5.0) L Globulin 5.5 g/dL Albumin/Globulin Ratio 0.5 (1.0-2.7) L Urine Color Yellow Urine Appearance Clear Urine pH 5 (4.5-8.0) Urine Specific [place] 1.025 (1.005-1.035) Urine Protein 2+ (NEGATIVE) H Urine Glucose (UA) 3+ (NEGATIVE) H Urine Ketones 1+ (NEGATIVE) H Urine Occult Blood 5+ (NEGATIVE) H Urine Nitrite Negative (NEGATIVE) Urine Bilirubin Negative (NEGATIVE) Urine Urobilinogen 1 MG/DL (0.0-1.0) H Urine Leukocyte Esterase Negative (NEGATIVE) Urine RBC 30-40 /HPF (0 - 0) H Urine WBC 0-2 /HPF (0 - 0) Urine Squamous Epithelial Cells None /LPF (NONE/OCC) Urine Bacteria Occasional /HPF (NONE) IMPRESSION persistent hypoglycemia, likely exogenous due to medications chronic lung disease pneumonia dementia urinary incontinence PLAN d5ns iv hydration monitor blood sugars hold oral hypoglycemic agents IV antibiotics pending cultures respiratory care oxygen monitor for change and improvement PT evaluation impression, plan, and exam edited and reviewed in detail care discussed with TAMMY RUIZ Mar 16, 2017 07:43
[2017-03-16 07:58] LABS: ANION GAP 7 mmol/L (5-15); BLOOD UREA NITROGEN 16 mg/dL (7-18); CALCIUM 9.3 MG/DL (8.5-10.1); CARBON DIOXIDE 26 MMOL/L (21-32); CHLORIDE 104 MMOL/L (98-107); CREATININE 0.8 MG/DL (0.55-1.30); POTASSIUM 5.4 MMOL/L (3.5-5.1); SODIUM 137 MMOL/L (136-145)
[2017-03-16] MEDS ORDERED: Albuterol ud Inhalation HHN PRN (08:00)
[2017-03-16] MEDS: cefTRIAXone 1 GM in NS 55 ML IVPB SCH (09:34)
[2017-03-16] MEDS: dilTIAZem HCl 30mg tab ORAL SCH ×3 (09:35→22:38)
[2017-03-16] MEDS: Heparin 5000 units/ml inj SUBQ SCH ×2 (09:38→18:12)
[2017-03-16] MEDS: D5NS 1,000 ML IV SCH ×2 (09:46→18:13)
--- NOTE | 2017-03-16 11:56 | Diagnostic Imaging Report ---
Indication: Shortness of breath Technique: XRAY Chest 1v Comparison: 03/15/2017 Findings: No significant interval change in extensive bilateral interstitial opacities likely related to interstitial lung disease/pulmonary fibrosis noted on prior CT. No new focal opacity is appreciated. No pneumothorax. Heart size and mediastinal contours are stable. Impression: No significant change in appearance of the heart and lungs compared to one day prior.
[2017-03-16] MEDS: NovoLOG Insulin Flexpen SUBQ SCH ×3 (12:14→21:34)
[2017-03-17] VITALS: BP 118/59
[2017-03-17 04:00] VITALS: BP 129/67
[2017-03-17] MEDS: D5NS 1,000 ML IV SCH ×2 (04:18→13:16)
[2017-03-17] MEDS: dilTIAZem HCl 30mg tab ORAL SCH ×3 (06:00→22:01)
[2017-03-17] MEDS: NovoLOG Insulin Flexpen SUBQ SCH ×4 (06:33→20:54)
[2017-03-17 07:39] LABS: BASOPHILS % (AUTO) 0.7 % (0.0-2.0); EOSINOPHILS % (AUTO) 0.6 % (0.0-3.0); HEMATOCRIT 36.1 % (42.0-52.0); HEMOGLOBIN 12.2 G/DL (14.2-18.0); LYMPHOCYTES % (AUTO) 9.8 % (20.0-45.0); MEAN CORPUSCULAR VOLUME 93 FL (80-99); PLATELET COUNT 346 K/UL (150-450); RED BLOOD COUNT 3.89 M/UL (4.70-6.10); RED CELL DISTRIBUTION WIDTH 12.8 % (11.6-14.8); WHITE BLOOD COUNT 7.3 K/UL (4.8-10.8)
[2017-03-17 08:00] VITALS: BP 100/67
[2017-03-17 08:07] LABS: ANION GAP 1 mmol/L (5-15); BLOOD UREA NITROGEN 13 mg/dL (7-18); CALCIUM 9.1 MG/DL (8.5-10.1); CARBON DIOXIDE 32 MMOL/L (21-32); CHLORIDE 107 MMOL/L (98-107); CREATININE 0.9 MG/DL (0.55-1.30); POTASSIUM 4.6 MMOL/L (3.5-5.1); SODIUM 140 MMOL/L (136-145)
--- NOTE | 2017-03-17 09:12 | General Progress Note ---
Assessment/Plan Problem List: (1) Pulmonary fibrosis ICD Codes: J84.10 - Pulmonary fibrosis, unspecified SNOMED: 97475330 (2) Hypoxia ICD Codes: R09.02 - Hypoxemia SNOMED: 146521683 (3) HCAP (healthcare-associated pneumonia) ICD Codes: J18.9 - Pneumonia, unspecified organism SNOMED: 067786409 Status: stable, progressing Assessment/Plan abx monitor cxr resp care/o2 encourage pos monitor BS Subjective ROS Limited/Unobtainable: No Constitutional: Reports: malaise, weakness HEENT: Reports: no symptoms Cardiovascular: Reports: no symptoms Respiratory: Reports: no symptoms Gastrointestinal/Abdominal: Reports: no symptoms Genitourinary: Reports: no symptoms Neurologic/Psychiatric: Reports: no symptoms Endocrine: Reports: no symptoms Hematologic/Lymphatic: Reports: no symptoms Allergies: Coded Allergies: No Known Allergies (Verified , 09/12/10) All Systems: reviewed and negative except above Subjective more alert. w/o complaints. no cp/sob. d/w RN. Objective Last 24 Hour Vital Signs Date Time Temp Pulse Resp B/P (MAP) Pulse Ox O2 Delivery O2 Flow Rate FiO2 03/17/17 06:00 59 124/74 03/17/17 04:00 93 03/17/17 04:00 97.0 60 16 129/67 99 03/17/17 00:00 92 03/17/17 00:00 97.2 59 18 118/59 98 03/16/17 22:38 89 137/75 03/16/17 20:16 97 Nasal Cannula 3.0 32 03/16/17 20:16 Nasal Cannula 3.0 32 03/16/17 20:15 70 18 Nasal Cannula 3.0 32 03/16/17 20:00 79 03/16/17 20:00 97.3 70 16 110/63 98 03/16/17 16:00 72 03/16/17 16:00 97.2 87 20 117/69 99 Nasal Cannula 5.0 40 03/16/17 14:32 100 127/71 03/16/17 12:00 97.0 100 20 127/71 99 Nasal Cannula 5.0 40 03/16/17 12:00 82 03/16/17 09:35 105 129/81 Intake and Output 03/16/17 03/17/17 19:00 07:00 Intake Total 1100 ml Output Total 400 ml Balance 700 ml IV Total 1100 ml Output Urine Total 400 ml # Voids 1 Laboratory Tests 03/17/17 06:50: White Blood Count 7.3, Red Blood Count 3.89L, Hemoglobin 12.2L, Hematocrit 36.1L , Mean Corpuscular Volume 93, Mean Corpuscular Hemoglobin 31.4H, Mean Corpuscular Hemoglobin Concent 33.9, Red Cell Distribution Width 12.8, Platelet Count 346, Mean Platelet Volume 5.8L, Neutrophils (%) (Auto) 77.0H, Lymphocytes (%) (Auto) 9.8L, Monocytes (%) (Auto) 12.0H, Eosinophils (%) (Auto) 0.6, Basophils (%) (Auto) 0.7, Sodium Level 140, Potassium Level 4.6, Chloride Level 107, Carbon Dioxide Level 32, Anion Gap 1L, Blood Urea Nitrogen 13, Creatinine 0.9, Estimat Glomerular Filtration Rate , Glucose Level 181H, Calcium Level 9.1 Height (Feet): 6 Height (Inches): 0.00 Weight (Pounds): 155 General Appearance: WD/WN, alert Neck: supple Cardiovascular: regular rhythm Respiratory/Chest: chest wall non-tender, lungs clear, normal breath sounds, no respiratory distress Abdomen: normal bowel sounds, non tender, soft, no organomegaly Edema: no edema noted Arm (L), no edema noted Arm (R), no edema noted Leg (L), no edema noted Leg (R), no edema noted Pedal (L), no edema noted Pedal (R), no edema noted Generalized Neurologic: alert, responsive AJIT SANDERS Mar 17, 2017 09:12
[2017-03-17] MEDS: cefTRIAXone 1 GM in NS 55 ML IVPB SCH (09:22)
[2017-03-17] MEDS: Heparin 5000 units/ml inj SUBQ SCH ×2 (09:24→17:51)
--- NOTE | 2017-03-17 09:30 | History and Physical Report ---
DATE OF ADMISSION: 03/16/2017 CHIEF COMPLAINT: Shortness of breath, hyperglycemia, and possible pneumonia. HISTORY OF PRESENT ILLNESS: The patient is an 86-year-old male. He is a poor historian. He was brought in with complaints of hyperglycemia. He has a history of pulmonary fibrosis. Currently, complains only of "pain." He denies any chest pain or shortness of breath. Upon evaluation in the emergency room, the patient was hypoxic with an O2 saturation of 89%. He was placed on 4 liters. Chest x-ray showed bilateral consolidations that appeared chronic. He had an elevated white count of 15,000 hypoxemia. He is now admitted for further evaluation and care. PAST MEDICAL HISTORY: As above. History of diabetes and dementia. PAST SURGICAL HISTORY: Unknown. CURRENT MEDICATIONS: Reconciled and reviewed. ALLERGIES: None. FAMILY HISTORY: None. SOCIAL HISTORY: There is no known history of tobacco, ethanol, or drugs. REVIEW OF SYSTEMS: From the patient is unobtainable as he is currently confused. He complains only currently of "pain." PHYSICAL EXAMINATION: VITAL SIGNS: Temperature 98, pulse 78, respirations 24, and blood pressure 120/83. GENERAL: The patient is a chronically ill-appearing thin male, in no apparent distress. He is awake. The patient is cachectic, thin, and frail. HEENT: His pupils are equal, round, and reactive to light. Sclerae anicteric. Oropharynx clear. NECK: Supple. HEART: Regular rate and rhythm. LUNGS: Clear. ABDOMEN: Soft, nontender, and nondistended. EXTREMITIES: Without clubbing, cyanosis, or edema. LABORATORY AND DIAGNOSTIC DATA: White count 15,000, hemoglobin 14, hematocrit 45, and platelets 449. Sodium 136, potassium 4.4, and glucose 294. Albumin of 2.8. UA showed 30 to 40 WBCs. Chest x-ray showed extensive interstitial opacities. ASSESSMENT: This is an unfortunate male admitted with complaints of hyperglycemia, shortness of breath, and pulmonary fibrosis, cannot rule out underlying pneumonia. PLAN: 1. Supplemental oxygen. 2. IV fluids. 3. IV antibiotics. 4. Pulmonary consultation. 5. Followup cultures. 6. Encourage p.o. 7. Nutritional supplements. James Irene M.D. DR: KEYSHAWN JOB#: [id number] CC:
[2017-03-17 12:00] VITALS: BP 121/61
--- NOTE | 2017-03-17 12:43 | General Progress Note ---
Assessment/Plan Assessment/Plan IMPRESSION persistent hypoglycemia, likely exogenous due to medications chronic lung disease pneumonia dementia urinary incontinence PLAN d5ns iv hydration monitor blood sugars for change best to remain off meds for diabetes IV antibiotics pending cultures respiratory care oxygen as needed monitor for change and improvement PT evaluation dc planning impression, plan, and exam edited and reviewed in detail care discussed with RN Subjective Allergies: Coded Allergies: No Known Allergies (Verified , 09/12/10) Subjective seems more alert Objective Last 24 Hour Vital Signs Date Time Temp Pulse Resp B/P (MAP) Pulse Ox O2 Delivery O2 Flow Rate FiO2 03/17/17 12:00 97.2 89 18 121/61 Nasal Cannula 2.0 03/17/17 09:20 Nasal Cannula 3.0 03/17/17 09:18 96 Nasal Cannula 3.0 03/17/17 09:17 84 20 Nasal Cannula 3.0 03/17/17 08:00 97.0 90 20 100/67 95 Nasal Cannula 4.0 03/17/17 08:00 79 03/17/17 06:00 59 124/74 03/17/17 04:00 93 03/17/17 04:00 97.0 60 16 129/67 99 03/17/17 00:00 92 03/17/17 00:00 97.2 59 18 118/59 98 03/16/17 22:38 89 137/75 03/16/17 20:16 97 Nasal Cannula 3.0 32 03/16/17 20:16 Nasal Cannula 3.0 32 03/16/17 20:15 70 18 Nasal Cannula 3.0 32 03/16/17 20:00 79 03/16/17 20:00 97.3 70 16 110/63 98 03/16/17 16:00 72 03/16/17 16:00 97.2 87 20 117/69 99 Nasal Cannula 5.0 40 03/16/17 14:32 100 127/71 Intake and Output 03/16/17 03/17/17 19:00 07:00 Intake Total 1100 ml Output Total 400 ml Balance 700 ml IV Total 1100 ml Output Urine Total 400 ml # Voids 1 Laboratory Tests 03/17/17 06:50: White Blood Count 7.3, Red Blood Count 3.89L, Hemoglobin 12.2L, Hematocrit 36.1L , Mean Corpuscular Volume 93, Mean Corpuscular Hemoglobin 31.4H, Mean Corpuscular Hemoglobin Concent 33.9, Red Cell Distribution Width 12.8, Platelet Count 346, Mean Platelet Volume 5.8L, Neutrophils (%) (Auto) 77.0H, Lymphocytes (%) (Auto) 9.8L, Monocytes (%) (Auto) 12.0H, Eosinophils (%) (Auto) 0.6, Basophils (%) (Auto) 0.7, Sodium Level 140, Potassium Level 4.6, Chloride Level 107, Carbon Dioxide Level 32, Anion Gap 1L, Blood Urea Nitrogen 13, Creatinine 0.9, Estimat Glomerular Filtration Rate , Glucose Level 181H, Calcium Level 9.1 Height (Feet): 6 Height (Inches): 0.00 Weight (Pounds): 155 Objective WDWN NAD clear breath sounds bilaterally without rhonchi or wheeze [id number] without MRG NABS nontender no HSM no CCE confused reduced ROM TAMMY NOGUERA Mar 17, 2017 12:43
[2017-03-17] MEDS ORDERED: D5NS IV ONE (15:56)
[2017-03-17] MEDS ORDERED: NS 500ML ONE (15:56)
[2017-03-17] MEDS ORDERED: Tubing IV Secondary IV ONE (15:56)
[2017-03-17] MEDS ORDERED: KCL IV ONE (15:56)
[2017-03-17 16:00] VITALS: BP 110/61
[2017-03-17 20:00] VITALS: BP 106/57
[2017-03-18] VITALS: BP 102/64
[2017-03-18] MEDS: D5NS 1,000 ML IV SCH (00:16)
[2017-03-18 04:00] VITALS: BP 110/61
[2017-03-18] MEDS: dilTIAZem HCl 30mg tab ORAL SCH ×3 (06:11→20:58)
[2017-03-18] MEDS: NovoLOG Insulin Flexpen SUBQ SCH ×4 (06:12→20:58)
[2017-03-18 08:00] VITALS: BP 114/60
[2017-03-18] MEDS: cefTRIAXone 1 GM in NS 55 ML IVPB SCH (08:29)
--- NOTE | 2017-03-18 08:31 | General Progress Note ---
Assessment/Plan Assessment/Plan IMPRESSION persistent hypoglycemia, likely exogenous due to medications chronic lung disease pneumonia dementia urinary incontinence PLAN dc hydration monitor blood sugars for change best to remain off meds for diabetes IV antibiotics --> change to PO respiratory care oxygen as needed monitor for change and improvement PT evaluation dc planning in am if stable impression, plan, and exam edited and reviewed in detail care discussed with RN Subjective Allergies: Coded Allergies: No Known Allergies (Verified , 09/12/10) Subjective seems near baseline Objective Last 24 Hour Vital Signs Date Time Temp Pulse Resp B/P (MAP) Pulse Ox O2 Delivery O2 Flow Rate FiO2 03/18/17 08:06 Nasal Cannula 2.0 28 03/18/17 08:06 61 18 Nasal Cannula 2.0 28 03/18/17 08:06 99 Nasal Cannula 2.0 28 03/18/17 06:11 88 125/70 03/18/17 04:00 97.7 78 18 110/61 97 Nasal Cannula 03/18/17 04:00 76 03/18/17 00:00 93 03/18/17 00:00 98.4 67 20 102/64 99 Nasal Cannula 03/17/17 22:01 69 110/55 03/17/17 20:05 81 03/17/17 20:00 98.4 70 24 106/57 99 Nasal Cannula 03/17/17 19:30 Nasal Cannula 2.0 28 03/17/17 19:30 80 20 Nasal Cannula 2.0 28 03/17/17 19:30 95 Nasal Cannula 2.0 28 03/17/17 18:32 169 03/17/17 16:00 97.5 80 20 110/61 Nasal Cannula 2.0 03/17/17 13:15 150 121/62 03/17/17 12:00 76 03/17/17 12:00 97.2 89 18 121/61 Nasal Cannula 2.0 03/17/17 09:20 Nasal Cannula 3.0 03/17/17 09:18 96 Nasal Cannula 3.0 03/17/17 09:17 84 20 Nasal Cannula 3.0 Intake and Output 03/17/17 03/18/17 19:00 07:00 Intake Total 460 ml 1200 ml Output Total 350 ml 900 ml Balance 110 ml 300 ml Intake Oral 360 ml IV Total 100 ml 1200 ml Output Urine Total 350 ml 900 ml # Voids 2 5 # Bowel Movements 1 Height (Feet): 6 Height (Inches): 0.00 Weight (Pounds): 155 Objective WDWN NAD clear breath sounds bilaterally without rhonchi or wheeze [id number] without MRG NABS nontender no HSM no CCE confused but no distress reduced ROM TAMMY NOGUERA Mar 18, 2017 08:31
[2017-03-18] MEDS: Heparin 5000 units/ml inj SUBQ SCH ×2 (08:32→20:57)
--- NOTE | 2017-03-18 09:00 | General Progress Note ---
Assessment/Plan Problem List: (1) Pulmonary fibrosis ICD Codes: J84.10 - Pulmonary fibrosis, unspecified SNOMED: 38489622 (2) Hypoxia ICD Codes: R09.02 - Hypoxemia SNOMED: 058461829 (3) HCAP (healthcare-associated pneumonia) ICD Codes: J18.9 - Pneumonia, unspecified organism SNOMED: 986125603 Status: stable, progressing Assessment/Plan abx monitor cxr resp care/o2 encourage pos monitor BS encourage pos Subjective ROS Limited/Unobtainable: No Constitutional: Reports: malaise, weakness HEENT: Reports: no symptoms Cardiovascular: Reports: no symptoms Respiratory: Reports: no symptoms Gastrointestinal/Abdominal: Reports: no symptoms Genitourinary: Reports: no symptoms Neurologic/Psychiatric: Reports: pre-existing deficit Endocrine: Reports: no symptoms Hematologic/Lymphatic: Reports: no symptoms Allergies: Coded Allergies: No Known Allergies (Verified , 09/12/10) All Systems: reviewed and negative except above Subjective more alert. w/o complaints. no cp/sob. d/w RN. eating better. pulm noted. Objective Last 24 Hour Vital Signs Date Time Temp Pulse Resp B/P (MAP) Pulse Ox O2 Delivery O2 Flow Rate FiO2 03/18/17 08:06 Nasal Cannula 2.0 28 03/18/17 08:06 61 18 Nasal Cannula 2.0 28 03/18/17 08:06 99 Nasal Cannula 2.0 28 03/18/17 08:00 97.7 66 18 114/60 98 Nasal Cannula 4.0 03/18/17 06:11 88 125/70 03/18/17 04:00 97.7 78 18 110/61 97 Nasal Cannula 03/18/17 04:00 76 03/18/17 00:00 93 03/18/17 00:00 98.4 67 20 102/64 99 Nasal Cannula 03/17/17 22:01 69 110/55 03/17/17 20:05 81 03/17/17 20:00 98.4 70 24 106/57 99 Nasal Cannula 03/17/17 19:30 Nasal Cannula 2.0 28 03/17/17 19:30 80 20 Nasal Cannula 2.0 28 03/17/17 19:30 95 Nasal Cannula 2.0 28 03/17/17 18:32 169 03/17/17 16:00 97.5 80 20 110/61 Nasal Cannula 2.0 03/17/17 13:15 150 121/62 03/17/17 12:00 76 03/17/17 12:00 97.2 89 18 121/61 Nasal Cannula 2.0 03/17/17 09:20 Nasal Cannula 3.0 03/17/17 09:18 96 Nasal Cannula 3.0 03/17/17 09:17 84 20 Nasal Cannula 3.0 Intake and Output 03/17/17 03/18/17 19:00 07:00 Intake Total 460 ml 1200 ml Output Total 350 ml 900 ml Balance 110 ml 300 ml Intake Oral 360 ml IV Total 100 ml 1200 ml Output Urine Total 350 ml 900 ml # Voids 2 5 # Bowel Movements 1 Height (Feet): 6 Height (Inches): 0.00 Weight (Pounds): 155 Objective General Appearance: WD/WN, alert Neck: supple Cardiovascular: regular rhythm Respiratory/Chest: chest wall non-tender, lungs clear, normal breath sounds, no respiratory distress Abdomen: normal bowel sounds, non tender, soft, no organomegaly Edema: no edema noted Arm (L), no edema noted Arm (R), no edema noted Leg (L), no edema noted Leg (R), no edema noted Pedal (L), no edema noted Pedal (R), no edema noted Generalized Neurologic: alert, responsive AJIT SANDERS Mar 18, 2017 09:00
[2017-03-18 11:45] VITALS: BP 113/64
--- NOTE | 2017-03-18 12:01 | Cardiology Report ---
APPROVED REPORT EXAM: Two-dimensional and M-mode echocardiogram with Doppler and color Doppler. INDICATION Tachycardia M-Mode DIMENSIONS IVSd1.0 (0.7-1.1cm)Left Atrium (MM)2.7 (1.6-4.0cm) LVDd4.6 (3.5-5.6cm)Aortic Root3.0 (2.0-3.7cm) PWd0.9 (0.7-1.1cm)Aortic Cusp Exc.1.5 (1.5-2.0cm) LVDs2.0 (2.5-4.0cm) PWs1.0 cm Normal left ventricular chamber size, systolic function and wall motion. Left ventricular ejection fraction estimated to be 55 %. No evidence of left ventricular hypertrophy. No evidence of pericardial effusion. All other cardiac chamber sizes are within normal limits. Focal aortic valve sclerosis with adequate cusp excursion. Thickened mitral valve leaflets with normal excursion. Mild mitral annulus and aortic root calcification. Normal pulmonic valve structure. Normal tricuspid valve structure. Subcostal views could not be obtained. A color flow and spectral Doppler study was performed and revealed: Trace aortic regurgitation. Mild mitral regurgitation. Mitral diastolic velocities suggest mild left ventricular dysfunction (Grade I ). Mild tricuspid regurgitation. Tricuspid systolic velocities suggests peak right ventricular systolic pressure of 53 mmHg, consistent with moderate pulmonary hypertension. Mild pulmonic regurgitation present.
--- NOTE | 2017-03-18 15:46 | Wound Care Consultation ---
Wound Assessment Wound Assessment : Wound Number: 1 Wound Present on Admission: Yes New Wound: No Status Change of Wound: No Wound Location Body Site Modif: mid Wound Location Body Site: other - Sacrococcygeal Wound Type: pressure ulcer Davin Test: Does not Davin Pressure Ulcer Stage: Unstageable Wound Thickness: Full Thickness Wound Length: 3.5 Wound Width: 4.5 Wound Depth: utd Percent of Wound Bed Yellow/Wh: 80 Percent of Wound Purple/Maroon: 20 Wound Drainage Description: Serosanguineous Wound Drainage Odor: None/Absent Tissue Surrounding Wound: Macerated Wound General Appearance: Reddened - purple yellow, Draining Wound Comment #1 Sacrococcygeal unstageable pressure ulcer Recommendation -Local wound care per protocol -Keep clean and dry -Offload both heels -Heel protector on both heels -Optimize nutrition -Low air loss P200 mattress -Turn and reposition -Assess and f/u accordingly for any changes LIVAN GARVIN RN Mar 18, 2017 15:46
[2017-03-18 16:00] VITALS: BP 125/74
[2017-03-18 20:00] VITALS: BP 121/74
[2017-03-18] MEDS ORDERED: D5NS 1000ml IV ONE (20:52)
[2017-03-19] VITALS (7 sets, daily range): BP systolic 108–154; BP diastolic 55–79
[2017-03-19] MEDS: dilTIAZem HCl 30mg tab ORAL SCH ×3 (06:02→22:00)
[2017-03-19] MEDS: NovoLOG Insulin Flexpen SUBQ SCH ×4 (06:07→21:00)
--- NOTE | 2017-03-19 07:03 | General Progress Note ---
Assessment/Plan Assessment/Plan IMPRESSION persistent hypoglycemia, likely exogenous due to medications chronic lung disease pneumonia dementia urinary incontinence VRE colonized PLAN ok to dc antibiotics family wants oxygen; will check ABG respiratory care dc home today impression, plan, and exam edited and reviewed in detail care discussed with RN Subjective Allergies: Coded Allergies: No Known Allergies (Verified , 09/12/10) Subjective seems near baseline Objective Last 24 Hour Vital Signs Date Time Temp Pulse Resp B/P (MAP) Pulse Ox O2 Delivery O2 Flow Rate FiO2 03/19/17 06:02 80 126/68 03/19/17 05:53 80 126/68 98 Nasal Cannula 2.0 03/19/17 04:00 97.5 90 18 129/79 95 03/19/17 03:15 121 03/19/17 00:06 97.0 89 20 114/65 100 Nasal Cannula 2.0 03/18/17 23:39 78 03/18/17 20:58 75 121/74 03/18/17 20:46 81 03/18/17 20:00 97.7 70 16 121/74 99 03/18/17 20:00 100 Nasal Cannula 2.0 03/18/17 19:12 97 Nasal Cannula 2.0 28 03/18/17 19:12 Nasal Cannula 2.0 28 03/18/17 19:12 72 18 Nasal Cannula 2.0 28 03/18/17 16:00 97.3 87 18 125/74 98 Nasal Cannula 2.0 03/18/17 16:00 94 03/18/17 14:08 70 113/64 03/18/17 12:00 91 03/18/17 11:45 97.7 70 18 113/64 98 Nasal Cannula 2.0 03/18/17 08:06 Nasal Cannula 2.0 28 03/18/17 08:06 61 18 Nasal Cannula 2.0 28 03/18/17 08:06 99 Nasal Cannula 2.0 28 03/18/17 08:00 80 03/18/17 08:00 97.7 66 18 114/60 98 Nasal Cannula 2.0 Intake and Output 03/18/17 03/19/17 19:00 07:00 Intake Total 1265 ml Output Total 1400 ml 500 ml Balance -135 ml -500 ml Intake Oral 960 ml IV Total 305 ml Output Urine Total 1400 ml 500 ml Height (Feet): 6 Height (Inches): 0.00 Weight (Pounds): 155 Objective WDWN NAD clear breath sounds bilaterally without rhonchi or wheeze [id number] without MRG NABS nontender no HSM no CCE confused but no distress reduced ROM TAMMY NOGUERA Mar 19, 2017 07:02
[2017-03-19] MEDS: cefTRIAXone 1 GM in NS 55 ML IVPB SCH (09:02)
[2017-03-19] MEDS: Heparin 5000 units/ml inj SUBQ SCH ×2 (09:04→21:00)
--- NOTE | 2017-03-19 12:23 | General Progress Note ---
Assessment/Plan Problem List: (1) Pulmonary fibrosis ICD Codes: J84.10 - Pulmonary fibrosis, unspecified SNOMED: 17902931 (2) Hypoxia ICD Codes: R09.02 - Hypoxemia SNOMED: 676794179 (3) HCAP (healthcare-associated pneumonia) ICD Codes: J18.9 - Pneumonia, unspecified organism SNOMED: 752119612 Status: stable, progressing Assessment/Plan monitor off abx resp care/o2 encourage pos monitor BS encourage pos dc planning Subjective ROS Limited/Unobtainable: Yes Constitutional: Reports: malaise, weakness HEENT: Reports: no symptoms Cardiovascular: Reports: no symptoms Respiratory: Reports: no symptoms Gastrointestinal/Abdominal: Reports: no symptoms Genitourinary: Reports: no symptoms Neurologic/Psychiatric: Reports: pre-existing deficit Endocrine: Reports: no symptoms Hematologic/Lymphatic: Reports: no symptoms Allergies: Coded Allergies: No Known Allergies (Verified , 09/12/10) All Systems: reviewed and negative except above Subjective more alert. w/o complaints. no cp/sob. d/w RN. eating better- 100%. pulm noted. Objective Last 24 Hour Vital Signs Date Time Temp Pulse Resp B/P (MAP) Pulse Ox O2 Delivery O2 Flow Rate FiO2 03/19/17 11:48 97.2 104 20 122/66 99 Nasal Cannula 2.0 03/19/17 08:00 97.5 86 20 154/55 95 Room Air 03/19/17 08:00 Nasal Cannula 2.0 28 03/19/17 08:00 100 03/19/17 08:00 70 18 Nasal Cannula 2.0 28 03/19/17 08:00 98 Nasal Cannula 2.0 28 03/19/17 06:02 80 126/68 03/19/17 05:53 80 126/68 98 Nasal Cannula 2.0 03/19/17 04:00 97.5 90 18 129/79 95 03/19/17 03:15 121 03/19/17 00:06 97.0 89 20 114/65 100 Nasal Cannula 2.0 03/18/17 23:39 78 03/18/17 20:58 75 121/74 03/18/17 20:46 81 03/18/17 20:00 97.7 70 16 121/74 99 03/18/17 20:00 100 Nasal Cannula 2.0 03/18/17 19:12 97 Nasal Cannula 2.0 28 03/18/17 19:12 Nasal Cannula 2.0 28 03/18/17 19:12 72 18 Nasal Cannula 2.0 28 03/18/17 16:00 97.3 87 18 125/74 98 Nasal Cannula 2.0 03/18/17 16:00 94 03/18/17 14:08 70 113/64 Intake and Output 03/18/17 03/19/17 19:00 07:00 Intake Total 1265 ml Output Total 1400 ml 500 ml Balance -135 ml -500 ml Intake Oral 960 ml IV Total 305 ml Output Urine Total 1400 ml 500 ml Laboratory Tests 03/19/17 08:00: Arterial Blood pH 7.427, Arterial Blood Partial Pressure CO2 42.8, Arterial Blood Partial Pressure O2 67.7L, Arterial Blood HCO3 27.6H, Arterial Blood Oxygen Saturation 93.3, Arterial Blood Base Excess 2.9, Leonardo Test Positive Height (Feet): 6 Height (Inches): 0.00 Weight (Pounds): 155 Objective General Appearance: WD/WN, alert Neck: supple Cardiovascular: regular rhythm Respiratory/Chest: chest wall non-tender, lungs clear, normal breath sounds, no respiratory distress Abdomen: normal bowel sounds, non tender, soft, no organomegaly Edema: no edema noted Arm (L), no edema noted Arm (R), no edema noted Leg (L), no edema noted Leg (R), no edema noted Pedal (L), no edema noted Pedal (R), no edema noted Generalized Neurologic: alert, responsive AJIT SANDERS Mar 19, 2017 12:23
[2017-03-20] VITALS: BP 129/87
--- NOTE | 2017-03-20 00:15 | Discharge Summary ---
DATE OF ADMISSION: 03/16/2017 DATE OF DISCHARGE: 03/19/2017 ADMISSION DIAGNOSES: 1. Hypoglycemia. 2. Possible pneumonia versus bronchitis. 3. History of dementia. 4. History of pulmonary fibrosis. DISCHARGE DIAGNOSES: 1. Hypoglycemia. 2. Possible pneumonia versus bronchitis. 3. History of dementia. 4. History of pulmonary fibrosis. HOSPITAL COURSE: The patient is a pleasant male, who is admitted with complaints of hypoglycemia and shortness of breath. The patient was admitted and initially was placed on IV fluids. His p.o. intake initially was poor, but improved. He received supplemental oxygen. Initially, he was covered for antibiotics. Antibiotics were later discontinued. On discharge, the patient was doing well. He was eating 100%. The patient will be discharged home with home O2. DISCHARGE MEDICATIONS: Please see discharge medication list for discharge medications. DIET: Pureed diet. ACTIVITIES: Ad-yonatan. FOLLOWUP: The patient will follow up by his PMD in one week. James Irene M.D. DR: KEYSHAWN JOB#: [id number] CC:
[2017-03-20 04:00] VITALS: BP 121/71
--- NOTE | 2017-03-20 06:30 | Consultation ---
DATE OF CONSULTATION: 03/19/2017 CARDIOLOGY CONSULTATION CONSULTING PHYSICIAN: Khoa Hoang M.D. REQUESTING PHYSICIAN: Tobin Ferrari M.D. REASON FOR CONSULTATION: Atrial arrhythmias. HISTORY OF PRESENT ILLNESS: This 86-year-old male, who was admitted to the hospital with shortness of breath due to pulmonary fibrosis and pneumonia. He has been treated with antibiotics and respiratory hygiene and improved today, however, he developed more atrial arrhythmias prompting this consultation. PAST MEDICAL HISTORY: Includes diabetes type 2, cerebrovascular disease with dementia, hard of hearing and pulmonary fibrosis. ALLERGIES: None. MEDICATIONS: Reviewed and reconciled. FAMILY HISTORY: Noncontributory. SOCIAL HISTORY: Prior smoker. No alcohol or substance abuse. REVIEW OF SYSTEMS: Not obtainable reliably from the patient. Pertinent data from his son as outlined above. PHYSICAL EXAMINATION: VITAL SIGNS: Blood pressure 108/56, pulse 73, respirations 18, and afebrile. Heart rate ranging from 70 to 110. Monitored sinus arrhythmia with atrial ectopy and multifocal atrial tachycardia. NECK: Supple. LUNGS: With diminished breath sounds and rhonchi. CARDIAC: Irregularly irregular. Normal S1 and S2. ABDOMEN: Soft. EXTREMITIES: No edema. LABORATORY DATA: White count 7 and hemoglobin 12. Potassium 4.6 from 03/17/2017. Echocardiogram reviewed and notable for normal ejection fraction and moderate pulmonary hypertension. IMPRESSION: 1. Pulmonary hypertension. 2. Paroxysmal atrial tachyarrhythmias. 3. Pulmonary fibrosis, resolving. 4. Pneumonia. PLAN: 1. Continue diltiazem was switched to long-acting maintenance dose. 2. No plan for anticoagulation unless atrial fibrillation is noted, however, fall risk and bleeding risks need to be addressed at that time. Khoa Hoang M.D. DR: AMELIA JOB#: [id number] CC: DENICE
[2017-03-20] MEDS: NovoLOG Insulin Flexpen SUBQ SCH ×4 (06:39→21:11)
[2017-03-20 08:00] VITALS: BP 120/82
--- NOTE | 2017-03-20 08:25 | General Progress Note ---
Assessment/Plan Problem List: (1) Pulmonary fibrosis ICD Codes: J84.10 - Pulmonary fibrosis, unspecified SNOMED: 74684309 (2) Hypoxia ICD Codes: R09.02 - Hypoxemia SNOMED: 361035139 (3) HCAP (healthcare-associated pneumonia) ICD Codes: J18.9 - Pneumonia, unspecified organism SNOMED: 477671087 Status: stable, progressing Assessment/Plan monitor off abx cards follow up resp care/o2 encourage pos monitor BS encourage pos dc planning when hr better controlled Subjective ROS Limited/Unobtainable: Yes Constitutional: Reports: malaise, weakness HEENT: Reports: no symptoms Cardiovascular: Reports: no symptoms Respiratory: Reports: no symptoms Gastrointestinal/Abdominal: Reports: no symptoms Genitourinary: Reports: no symptoms Neurologic/Psychiatric: Reports: pre-existing deficit Endocrine: Reports: no symptoms Hematologic/Lymphatic: Reports: no symptoms Allergies: Coded Allergies: No Known Allergies (Verified , 09/12/10) All Systems: reviewed and negative except above Subjective events noted. dc held due to svt. in and out of afib with rvr. otherwise eating well. Objective Last 24 Hour Vital Signs Date Time Temp Pulse Resp B/P (MAP) Pulse Ox O2 Delivery O2 Flow Rate FiO2 03/20/17 04:00 97.7 77 18 121/71 95 03/20/17 04:00 95 03/20/17 00:00 97.7 65 16 129/87 98 03/19/17 22:00 73 108/56 03/19/17 20:00 97.9 73 18 108/56 98 03/19/17 20:00 95 03/19/17 19:30 72 18 Nasal Cannula 2.0 28 03/19/17 19:30 Nasal Cannula 2.0 28 03/19/17 19:30 98 Nasal Cannula 2.0 28 03/19/17 16:00 97.0 103 20 117/60 96 Nasal Cannula 1.0 03/19/17 16:00 109 03/19/17 13:11 104 122/66 03/19/17 12:00 101 03/19/17 11:48 97.2 104 20 122/66 99 Nasal Cannula 2.0 Intake and Output 03/19/17 03/20/17 19:00 07:00 Intake Total 415 ml 120 ml Output Total 400 ml 500 ml Balance 15 ml -380 ml Intake Oral 360 ml 120 ml IV Total 55 ml Output Urine Total 400 ml Stool Total 500 ml # Voids 2 Height (Feet): 6 Height (Inches): 0.00 Weight (Pounds): 155 Objective General Appearance: WD/WN, alert Neck: supple Cardiovascular: regular rhythm Respiratory/Chest: chest wall non-tender, lungs clear, normal breath sounds, no respiratory distress Abdomen: normal bowel sounds, non tender, soft, no organomegaly Edema: no edema noted Arm (L), no edema noted Arm (R), no edema noted Leg (L), no edema noted Leg (R), no edema noted Pedal (L), no edema noted Pedal (R), no edema noted Generalized Neurologic: alert, responsive AJIT SANDERS Mar 20, 2017 08:25
[2017-03-20] MEDS ORDERED: dilTIAZem HCl CD 120mg cap ORAL SCH (09:00)
[2017-03-20] MEDS: Heparin 5000 units/ml inj SUBQ SCH ×2 (09:01→21:12)
[2017-03-20] MEDS: cefTRIAXone 1 GM in NS 55 ML IVPB SCH (09:01)
[2017-03-20 12:00] VITALS: BP 122/70
--- NOTE | 2017-03-20 14:30 | General Progress Note ---
Assessment/Plan Assessment/Plan IMPRESSION persistent hypoglycemia, likely exogenous due to medications chronic lung disease pneumonia dementia urinary incontinence VRE colonized PLAN hold dc cards clearance hospice per family address code status impression, plan, and exam edited and reviewed in detail care discussed with RN Subjective Allergies: Coded Allergies: No Known Allergies (Verified , 09/12/10) Subjective d/w cards d/w son wants hospice would like to take him home Objective Last 24 Hour Vital Signs Date Time Temp Pulse Resp B/P (MAP) Pulse Ox O2 Delivery O2 Flow Rate FiO2 03/20/17 12:00 100 03/20/17 12:00 97.5 103 20 122/70 98 Nasal Cannula 2.0 03/20/17 09:00 130 120/82 03/20/17 08:00 97.2 118 20 120/82 95 Nasal Cannula 2.0 03/20/17 08:00 104 03/20/17 07:26 Nasal Cannula 2.0 28 03/20/17 07:26 97 Nasal Cannula 2.0 28 03/20/17 07:25 70 18 Nasal Cannula 2.0 28 03/20/17 04:00 97.7 77 18 121/71 95 03/20/17 04:00 95 03/20/17 00:00 97.7 65 16 129/87 98 03/19/17 22:00 73 108/56 03/19/17 20:00 97.9 73 18 108/56 98 03/19/17 20:00 95 03/19/17 19:30 72 18 Nasal Cannula 2.0 28 03/19/17 19:30 Nasal Cannula 2.0 28 03/19/17 19:30 98 Nasal Cannula 2.0 28 03/19/17 16:00 97.0 103 20 117/60 96 Nasal Cannula 1.0 03/19/17 16:00 109 Intake and Output 03/19/17 03/20/17 19:00 07:00 Intake Total 415 ml 120 ml Output Total 400 ml 500 ml Balance 15 ml -380 ml Intake Oral 360 ml 120 ml IV Total 55 ml Output Urine Total 400 ml Stool Total 500 ml # Voids 2 Height (Feet): 6 Height (Inches): 0.00 Weight (Pounds): 155 Objective WDWN NAD clear breath sounds bilaterally without rhonchi or wheeze S1S2 tachy without MRG NABS nontender no HSM no CCE confused but no distress reduced ROM TAMMY NOGUERA Mar 20, 2017 14:30
[2017-03-20 16:00] VITALS: BP 114/73
[2017-03-20 20:00] VITALS: BP 108/69
[2017-03-20] MEDS: dilTIAZem HCl CD 120mg cap ORAL SCH (20:33)
--- NOTE | 2017-03-20 21:47 | Progress Note ---
DATE: 03/20/2017 CARDIOLOGY PROGRESS NOTE SUBJECTIVE: Condition remains poor and the patient continues to have shortness of breath even in bed. He continues to have episodes of rapid atrial tachyarrhythmias. OBJECTIVE: VITAL SIGNS: Blood pressure 122/70, pulse 130, respirations 20, and afebrile. LUNGS: Coarse breath sounds. Scattered rhonchi. No wheezing. HEART: Irregularly irregular rhythm. Rapid rate. Normal S1, S2. ABDOMEN: Soft. EXTREMITIES: No edema. IMPRESSION: 1. Pulmonary fibrosis. 2. Pulmonary hypertension. 3. Acute respiratory insufficiency. 4. Moderate protein-calorie malnutrition. 5. Paroxysmal atrial tachyarrhythmias. 6. Multifocal atrial tachycardia. 7. Hypoxia. 8. Acute on chronic diastolic congestive heart failure, likely right-sided. PLAN: 1. Advance diltiazem dosing. 2. DVT prophylaxis. 3. Insulin titration. 4. Recheck laboratory studies. 5. Consider ventilation/perfusion scan. Khoa Hoang M.D. DR: SHAYAN JOB#: [id number] CC:
[2017-03-21] VITALS: BP 138/57
[2017-03-21 04:00] VITALS: BP 112/61
[2017-03-21] MEDS: NovoLOG Insulin Flexpen SUBQ SCH ×4 (06:38→21:17)
[2017-03-21 07:05] LABS: BASOPHILS % (AUTO) 0.9 % (0.0-2.0); EOSINOPHILS % (AUTO) 0.8 % (0.0-3.0); HEMATOCRIT 38.5 % (42.0-52.0); HEMOGLOBIN 12.9 G/DL (14.2-18.0); LYMPHOCYTES % (AUTO) 15.7 % (20.0-45.0); MEAN CORPUSCULAR VOLUME 91 FL (80-99); MONOCYTES % (AUTO) 10.8 % (1.0-10.0); NEUTROPHILS % (AUTO) 71.8 % (45.0-75.0); PLATELET COUNT 351 K/UL (150-450); RED BLOOD COUNT 4.23 M/UL (4.70-6.10); RED CELL DISTRIBUTION WIDTH 12.2 % (11.6-14.8); WHITE BLOOD COUNT 9.4 K/UL (4.8-10.8)
[2017-03-21 07:27] LABS: ALANINE AMINOTRANSFERASE 13 U/L (12-78); ALBUMIN 2.1 G/DL (3.4-5.0); ALBUMIN/GLOBULIN RATIO 0.4 (1.0-2.7); ALKALINE PHOSPHATASE 101 U/L (46-116); ANION GAP 6 mmol/L (5-15); ASPARTATE AMINO TRANSFERASE 25 U/L (15-37); BILIRUBIN,TOTAL 0.6 MG/DL (0.2-1.0); BLOOD UREA NITROGEN 15 mg/dL (7-18); CALCIUM 9.2 MG/DL (8.5-10.1); CARBON DIOXIDE 33 MMOL/L (21-32); CHLORIDE 97 MMOL/L (98-107); CREATININE 0.9 MG/DL (0.55-1.30); POTASSIUM 4.1 MMOL/L (3.5-5.1); SODIUM 136 MMOL/L (136-145)
[2017-03-21 08:00] VITALS: BP 112/76
--- NOTE | 2017-03-21 08:37 | General Progress Note ---
Assessment/Plan Assessment/Plan IMPRESSION persistent hypoglycemia, likely exogenous due to medications chronic lung disease pneumonia dementia urinary incontinence VRE colonized PLAN on cardizem cards clearance VQ scan and duplex hospice per family address code status impression, plan, and exam edited and reviewed in detail care discussed with RN Subjective Allergies: Coded Allergies: No Known Allergies (Verified , 09/12/10) Subjective d/w cards d/w son wants hospice still with rapid rate intermittently Objective Last 24 Hour Vital Signs Date Time Temp Pulse Resp B/P (MAP) Pulse Ox O2 Delivery O2 Flow Rate FiO2 03/21/17 04:00 97.0 67 20 112/61 96 03/21/17 04:00 Nasal Cannula 2.0 03/21/17 03:42 108 03/21/17 00:00 97.5 59 20 138/57 98 03/21/17 00:00 Nasal Cannula 2.0 03/20/17 23:49 100 03/20/17 20:33 105 108/69 03/20/17 20:00 98.2 87 20 108/69 98 Room Air 03/20/17 20:00 91 03/20/17 20:00 Nasal Cannula 2.0 03/20/17 19:30 Room Air 21 03/20/17 19:30 72 18 Room Air 21 03/20/17 19:30 95 Room Air 21 03/20/17 16:00 97.2 106 18 114/73 97 Nasal Cannula 2.0 03/20/17 16:00 116 03/20/17 12:00 100 03/20/17 12:00 97.5 103 20 122/70 98 Nasal Cannula 2.0 03/20/17 09:00 130 120/82 Intake and Output 03/20/17 03/21/17 19:00 07:00 Intake Total 415 ml 120 ml Output Total 350 ml 400 ml Balance 65 ml -280 ml Intake Oral 360 ml 120 ml IV Total 55 ml Output Urine Total 350 ml 400 ml # Voids 2 4 # Bowel Movements 1 Laboratory Tests 03/21/17 05:45: White Blood Count 9.4, Red Blood Count 4.23L, Hemoglobin 12.9L, Hematocrit 38.5L , Mean Corpuscular Volume 91, Mean Corpuscular Hemoglobin 30.4, Mean Corpuscular Hemoglobin Concent 33.4, Red Cell Distribution Width 12.2, Platelet Count 351, Mean Platelet Volume 6.3L, Neutrophils (%) (Auto) 71.8, Lymphocytes ( %) (Auto) 15.7L, Monocytes (%) (Auto) 10.8H, Eosinophils (%) (Auto) 0.8, Basophils (%) (Auto) 0.9, Sodium Level 136, Potassium Level 4.1, Chloride Level 97L, Carbon Dioxide Level 33H, Anion Gap 6, Blood Urea Nitrogen 15, Creatinine 0.9, Estimat Glomerular Filtration Rate , Glucose Level 186H, Calcium Level 9.2 , Magnesium Level 1.3L, Total Bilirubin 0.6, Aspartate Amino Transf (AST/SGOT) 25, Alanine Aminotransferase (ALT/SGPT) 13, Alkaline Phosphatase 101, Pro-B- Type Natriuretic Peptide 690H, Total Protein 7.5, Albumin 2.1L, Globulin 5.4, Albumin/Globulin Ratio 0.4L Height (Feet): 6 Height (Inches): 0.00 Weight (Pounds): 155 Objective WDWN NAD clear breath sounds bilaterally without rhonchi or wheeze S1S2 irregular without MRG NABS nontender no HSM no CCE confused but no distress reduced TAMMY LYN Mar 21, 2017 08:37
[2017-03-21] MEDS: dilTIAZem HCl CD 120mg cap ORAL SCH (09:26)
[2017-03-21] MEDS: cefTRIAXone 1 GM in NS 55 ML IVPB SCH (09:27)
[2017-03-21] MEDS: Heparin 5000 units/ml inj SUBQ SCH ×2 (09:31→21:12)
--- NOTE | 2017-03-21 10:14 | General Progress Note ---
Assessment/Plan Problem List: (1) Pulmonary fibrosis ICD Codes: J84.10 - Pulmonary fibrosis, unspecified SNOMED: 02806151 (2) Hypoxia ICD Codes: R09.02 - Hypoxemia SNOMED: 289085063 (3) HCAP (healthcare-associated pneumonia) ICD Codes: J18.9 - Pneumonia, unspecified organism SNOMED: 277245271 Status: stable, progressing Assessment/Plan monitor off abx cards follow up resp care/o2 encourage pos monitor BS encourage pos ratre control dc planning on hospice. Subjective ROS Limited/Unobtainable: No Constitutional: Reports: malaise, weakness HEENT: Reports: no symptoms Cardiovascular: Reports: no symptoms Respiratory: Reports: no symptoms Gastrointestinal/Abdominal: Reports: no symptoms Genitourinary: Reports: no symptoms Neurologic/Psychiatric: Reports: pre-existing deficit Endocrine: Reports: no symptoms Hematologic/Lymphatic: Reports: no symptoms Allergies: Coded Allergies: No Known Allergies (Verified , 09/12/10) All Systems: reviewed and negative except above Subjective events noted. dc held due to svt. in and out of afib with rvr. HR still elevated. no distress. denies pain. eating better Objective Last 24 Hour Vital Signs Date Time Temp Pulse Resp B/P (MAP) Pulse Ox O2 Delivery O2 Flow Rate FiO2 03/21/17 09:26 67 112/61 03/21/17 04:00 97.0 67 20 112/61 96 03/21/17 04:00 Nasal Cannula 2.0 03/21/17 03:42 108 03/21/17 00:00 97.5 59 20 138/57 98 03/21/17 00:00 Nasal Cannula 2.0 03/20/17 23:49 100 03/20/17 20:33 105 108/69 03/20/17 20:00 98.2 87 20 108/69 98 Room Air 03/20/17 20:00 91 03/20/17 20:00 Nasal Cannula 2.0 03/20/17 19:30 Room Air 21 03/20/17 19:30 72 18 Room Air 21 03/20/17 19:30 95 Room Air 21 03/20/17 16:00 97.2 106 18 114/73 97 Nasal Cannula 2.0 03/20/17 16:00 116 03/20/17 12:00 100 03/20/17 12:00 97.5 103 20 122/70 98 Nasal Cannula 2.0 Intake and Output 03/20/17 03/21/17 19:00 07:00 Intake Total 415 ml 120 ml Output Total 350 ml 400 ml Balance 65 ml -280 ml Intake Oral 360 ml 120 ml IV Total 55 ml Output Urine Total 350 ml 400 ml # Voids 2 4 # Bowel Movements 1 Laboratory Tests 03/21/17 05:45: White Blood Count 9.4, Red Blood Count 4.23L, Hemoglobin 12.9L, Hematocrit 38.5L , Mean Corpuscular Volume 91, Mean Corpuscular Hemoglobin 30.4, Mean Corpuscular Hemoglobin Concent 33.4, Red Cell Distribution Width 12.2, Platelet Count 351, Mean Platelet Volume 6.3L, Neutrophils (%) (Auto) 71.8, Lymphocytes ( %) (Auto) 15.7L, Monocytes (%) (Auto) 10.8H, Eosinophils (%) (Auto) 0.8, Basophils (%) (Auto) 0.9, Sodium Level 136, Potassium Level 4.1, Chloride Level 97L, Carbon Dioxide Level 33H, Anion Gap 6, Blood Urea Nitrogen 15, Creatinine 0.9, Estimat Glomerular Filtration Rate , Glucose Level 186H, Calcium Level 9.2 , Magnesium Level 1.3L, Total Bilirubin 0.6, Aspartate Amino Transf (AST/SGOT) 25, Alanine Aminotransferase (ALT/SGPT) 13, Alkaline Phosphatase 101, Pro-B- Type Natriuretic Peptide 690H, Total Protein 7.5, Albumin 2.1L, Globulin 5.4, Albumin/Globulin Ratio 0.4L Height (Feet): 6 Height (Inches): 0.00 Weight (Pounds): 155 Objective General Appearance: WD/WN, alert Neck: supple Cardiovascular: regular rhythm Respiratory/Chest: chest wall non-tender, lungs clear, normal breath sounds, no respiratory distress Abdomen: normal bowel sounds, non tender, soft, no organomegaly Edema: no edema noted Arm (L), no edema noted Arm (R), no edema noted Leg (L), no edema noted Leg (R), no edema noted Pedal (L), no edema noted Pedal (R), no edema noted Generalized Neurologic: alert, responsive AJIT SANDERS Mar 21, 2017 10:14
[2017-03-21 12:00] VITALS: BP 114/67
--- NOTE | 2017-03-21 13:40 | Diagnostic Imaging Report ---
Indication: Chest pain Technique: A ventilation/perfusion scan was performed. Ventilation was performed utilizing 40 mCi of Technetium 99m-DTPA. Perfusion was performed with 5.5 mCi of technetium 99m-MAA injected intravenously. Multiple side by side projections obtained. Findings: There are multiple patchy peripheral perfusion defects within both lungs. Ventilation is equally heterogeneous with multiple, primarily matched defects. Chest x-ray shows bilateral infiltrates versus fibrosis. Impression: Intermediate probability for pulmonary embolus. Recommend CTA for further evaluation
[2017-03-21 16:00] VITALS: BP 104/69
[2017-03-21 20:00] VITALS: BP 104/75
--- NOTE | 2017-03-21 21:45 | Progress Note ---
DATE: 03/21/2017 CARDIOLOGY PROGRESS NOTE SUBJECTIVE: The patient continues to have episodes of rapid heart rates with multifocal atrial tachycardia noted and episodes of atrial fibrillation. The patient has some shortness of breath at rest. OBJECTIVE: VITAL SIGNS: Blood pressure 112/61, heart rate 67 to 118, respiratory 20, no fevers and oxygen saturation 96% on 2 liters. LUNGS: Coarse breath sounds. HEART: Irregularly irregular rhythm. Normal S1 and S2. ABDOMEN: Soft without edema. LABORATORY AND DIAGNOSTIC DATA: White count 9 and hemoglobin 12.9. Potassium 4.1. Magnesium 1.3. Albumin 2.1. Pro-natriuretic peptide 690. Venous duplex scan was negative for DVT. IMPRESSION: 1. Pulmonary fibrosis. 2. Multifocal atrial tachycardia. 3. Pulmonary hypertension. 4. Protein-calorie malnutrition. 5. Chronic hypoxia. 6. Acute on chronic diastolic congestive heart failure. 7. Hypomagnesemia. PLAN: Advance diltiazem, IV magnesium, oxygenation and respiratory hygiene. Khoa Hoang M.D. DR: CRISTOBAL JOB#: [id number] CC:
[2017-03-22] VITALS: BP 94/61
[2017-03-22 04:00] VITALS: BP 103/63
[2017-03-22] MEDS: NovoLOG Insulin Flexpen SUBQ SCH ×4 (06:01→21:00)
[2017-03-22 08:00] VITALS: BP 123/68
--- NOTE | 2017-03-22 08:20 | General Progress Note ---
Assessment/Plan Assessment/Plan IMPRESSION persistent hypoglycemia, likely exogenous due to medications chronic lung disease pneumonia dementia urinary incontinence VRE colonized PLAN on cardizem cards clearance VQ scan- difficult to analyze with significant pulmonary fibrosis and duplex negative hospice per family address code status d/w son and dc hopefully today impression, plan, and exam edited and reviewed in detail care discussed with RN Subjective Allergies: Coded Allergies: No Known Allergies (Verified , 09/12/10) Subjective d/w cards on cardizem wants hospice rate improved Objective Last 24 Hour Vital Signs Date Time Temp Pulse Resp B/P (MAP) Pulse Ox O2 Delivery O2 Flow Rate FiO2 03/22/17 04:00 97.0 74 18 103/63 98 03/22/17 04:00 73 03/22/17 00:00 97.0 71 16 94/61 98 03/22/17 00:00 73 03/21/17 20:04 99 Nasal Cannula 2.0 28 03/21/17 20:04 86 18 Nasal Cannula 2.0 28 03/21/17 20:04 Nasal Cannula 2.0 28 03/21/17 20:00 97.3 92 16 104/75 98 03/21/17 20:00 81 03/21/17 16:00 75 03/21/17 16:00 97.8 74 18 104/69 100 Nasal Cannula 2.0 03/21/17 12:00 91 03/21/17 12:00 97.0 95 18 114/67 100 Nasal Cannula 2.0 03/21/17 09:26 67 112/61 Intake and Output 03/21/17 03/22/17 19:00 07:00 Intake Total 824 ml Output Total 200 ml Balance 624 ml Intake Oral 824 ml Output Urine Total 200 ml # Voids 3 3 Height (Feet): 6 Height (Inches): 0.00 Weight (Pounds): 155 Objective WDWN NAD clear breath sounds bilaterally without rhonchi or wheeze S1S2 irregular without MRG- rate controlled NABS nontender no HSM no CCE confused but no distress reduced ROM TAMMY NOGUERA Mar 22, 2017 08:20
[2017-03-22] MEDS: Heparin 5000 units/ml inj SUBQ SCH ×2 (08:52→21:43)
[2017-03-22] MEDS: dilTIAZem HCl CD 180mg cap ORAL SCH ×2 (08:52→21:42)
--- NOTE | 2017-03-22 09:25 | General Progress Note ---
Assessment/Plan Problem List: (1) Pulmonary fibrosis ICD Codes: J84.10 - Pulmonary fibrosis, unspecified SNOMED: 94774877 (2) Hypoxia ICD Codes: R09.02 - Hypoxemia SNOMED: 566904458 (3) HCAP (healthcare-associated pneumonia) ICD Codes: J18.9 - Pneumonia, unspecified organism SNOMED: 450759572 Status: stable, progressing Assessment/Plan monitor off abx cards follow up resp care/o2 encourage pos monitor BS encourage pos ratre control dc planning on hospice. Subjective ROS Limited/Unobtainable: No Constitutional: Reports: malaise, weakness HEENT: Reports: no symptoms Cardiovascular: Reports: irregular heart rate Respiratory: Reports: no symptoms Gastrointestinal/Abdominal: Reports: no symptoms Genitourinary: Reports: no symptoms Neurologic/Psychiatric: Reports: pre-existing deficit Endocrine: Reports: no symptoms Hematologic/Lymphatic: Reports: anemia Allergies: Coded Allergies: No Known Allergies (Verified , 09/12/10) All Systems: reviewed and negative except above Subjective events noted. dc held due to svt. in and out of afib with rvr. HR better controlled this am. Objective Last 24 Hour Vital Signs Date Time Temp Pulse Resp B/P (MAP) Pulse Ox O2 Delivery O2 Flow Rate FiO2 03/22/17 08:52 68 123/68 03/22/17 08:00 97.5 68 20 123/68 93 Nasal Cannula 2.0 03/22/17 04:00 97.0 74 18 103/63 98 03/22/17 04:00 73 03/22/17 00:00 97.0 71 16 94/61 98 03/22/17 00:00 73 03/21/17 20:04 99 Nasal Cannula 2.0 28 03/21/17 20:04 86 18 Nasal Cannula 2.0 28 03/21/17 20:04 Nasal Cannula 2.0 28 03/21/17 20:00 97.3 92 16 104/75 98 03/21/17 20:00 81 03/21/17 16:00 75 03/21/17 16:00 97.8 74 18 104/69 100 Nasal Cannula 2.0 03/21/17 12:00 91 03/21/17 12:00 97.0 95 18 114/67 100 Nasal Cannula 2.0 03/21/17 09:26 67 112/61 Intake and Output 03/21/17 03/22/17 19:00 07:00 Intake Total 824 ml Output Total 200 ml Balance 624 ml Intake Oral 824 ml Output Urine Total 200 ml # Voids 3 3 Height (Feet): 6 Height (Inches): 0.00 Weight (Pounds): 155 Objective General Appearance: WD/WN, alert Neck: supple Cardiovascular: regular rhythm Respiratory/Chest: chest wall non-tender, lungs clear, normal breath sounds, no respiratory distress Abdomen: normal bowel sounds, non tender, soft, no organomegaly Edema: no edema noted Arm (L), no edema noted Arm (R), no edema noted Leg (L), no edema noted Leg (R), no edema noted Pedal (L), no edema noted Pedal (R), no edema noted Generalized Neurologic: alert, responsive AJIT SANDERS Mar 22, 2017 09:25
[2017-03-22 11:47] VITALS: BP 102/75
[2017-03-22 16:00] VITALS: BP 112/79
[2017-03-22] MEDS ORDERED: NS 275ml ONE (19:14)
[2017-03-22] MEDS ORDERED: Tubing IV Secondary IV ONE (19:14)
[2017-03-22 20:00] VITALS: BP 98/66
[2017-03-23] VITALS: BP 109/71
[2017-03-23 04:00] VITALS: BP 116/61
[2017-03-23] MEDS: NovoLOG Insulin Flexpen SUBQ SCH ×4 (06:30→21:35)
[2017-03-23 08:00] VITALS: BP 110/61
[2017-03-23] MEDS: dilTIAZem HCl CD 180mg cap ORAL SCH ×2 (08:53→14:06)
[2017-03-23] MEDS: Heparin 5000 units/ml inj SUBQ SCH ×2 (08:54→21:35)
--- NOTE | 2017-03-23 11:39 | General Progress Note ---
Assessment/Plan Problem List: (1) Pulmonary fibrosis ICD Codes: J84.10 - Pulmonary fibrosis, unspecified SNOMED: 83276266 (2) Hypoxia ICD Codes: R09.02 - Hypoxemia SNOMED: 507098648 (3) HCAP (healthcare-associated pneumonia) ICD Codes: J18.9 - Pneumonia, unspecified organism SNOMED: 631445191 Assessment/Plan monitor off abx cards follow up resp care/o2 encourage pos monitor BS encourage pos rate control stable for dc Subjective ROS Limited/Unobtainable: No Constitutional: Reports: malaise, weakness HEENT: Reports: no symptoms Cardiovascular: Reports: no symptoms Respiratory: Reports: cough Gastrointestinal/Abdominal: Reports: no symptoms Genitourinary: Reports: no symptoms Neurologic/Psychiatric: Reports: pre-existing deficit Endocrine: Reports: no symptoms Hematologic/Lymphatic: Reports: no symptoms Allergies: Coded Allergies: No Known Allergies (Verified , 09/12/10) All Systems: reviewed and negative except above Subjective events noted. family appealed dc. eating well HR better controlled. no distress. denies pain, no sob Objective Last 24 Hour Vital Signs Date Time Temp Pulse Resp B/P (MAP) Pulse Ox O2 Delivery O2 Flow Rate FiO2 03/23/17 08:53 87 110/61 03/23/17 08:00 97.5 87 16 110/61 98 Nasal Cannula 2.0 03/23/17 08:00 105 03/23/17 04:00 97.0 69 16 116/61 99 03/23/17 04:00 93 03/23/17 00:00 97.0 95 20 109/71 98 03/22/17 21:42 82 98/66 03/22/17 20:17 Nasal Cannula 2.0 28 03/22/17 20:17 97 Nasal Cannula 2.0 28 03/22/17 20:00 97.0 82 18 98/66 98 03/22/17 20:00 85 03/22/17 16:00 97.5 76 20 112/79 96 Nasal Cannula 2.0 03/22/17 16:00 69 03/22/17 12:00 94 03/22/17 11:47 97.1 84 20 102/75 96 Nasal Cannula 2.0 Intake and Output 03/22/17 03/23/17 19:00 07:00 Intake Total 510 ml Output Total 1100 ml Balance -590 ml Intake Oral 510 ml Output Urine Total 1100 ml # Voids 2 Height (Feet): 6 Height (Inches): 0.00 Weight (Pounds): 155 Objective General Appearance: WD/WN, alert Neck: supple Cardiovascular: regular rhythm Respiratory/Chest: chest wall non-tender, lungs clear, normal breath sounds, no respiratory distress Abdomen: normal bowel sounds, non tender, soft, no organomegaly Edema: no edema noted Arm (L), no edema noted Arm (R), no edema noted Leg (L), no edema noted Leg (R), no edema noted Pedal (L), no edema noted Pedal (R), no edema noted Generalized Neurologic: alert, responsive AJIT SANDERS Mar 23, 2017 11:39
--- NOTE | 2017-03-23 11:55 | General Progress Note ---
Assessment/Plan Assessment/Plan IMPRESSION persistent hypoglycemia, likely exogenous due to medications chronic lung disease pneumonia dementia urinary incontinence VRE colonized PLAN on cardizem hospice per family request being arranged address code status d/w son and aware of overall poor prognosis with cardiopulmonary status and cognitive issues impression, plan, and exam edited and reviewed in detail care discussed with RN Subjective ROS Limited/Unobtainable: Yes Allergies: Coded Allergies: No Known Allergies (Verified , 09/12/10) Subjective d/w son wants hospice but contested discharge Objective Last 24 Hour Vital Signs Date Time Temp Pulse Resp B/P (MAP) Pulse Ox O2 Delivery O2 Flow Rate FiO2 03/23/17 08:53 87 110/61 03/23/17 08:00 97.5 87 16 110/61 98 Nasal Cannula 2.0 03/23/17 08:00 105 03/23/17 04:00 97.0 69 16 116/61 99 03/23/17 04:00 93 03/23/17 00:00 97.0 95 20 109/71 98 03/22/17 21:42 82 98/66 03/22/17 20:17 Nasal Cannula 2.0 28 03/22/17 20:17 97 Nasal Cannula 2.0 28 03/22/17 20:00 97.0 82 18 98/66 98 03/22/17 20:00 85 03/22/17 16:00 97.5 76 20 112/79 96 Nasal Cannula 2.0 03/22/17 16:00 69 03/22/17 12:00 94 Intake and Output 03/22/17 03/23/17 19:00 07:00 Intake Total 510 ml Output Total 1100 ml Balance -590 ml Intake Oral 510 ml Output Urine Total 1100 ml # Voids 2 Height (Feet): 6 Height (Inches): 0.00 Weight (Pounds): 155 Objective WDWN NAD clear breath sounds bilaterally without rhonchi or wheeze S1S2 irregular without MRG- rate controlled NABS nontender no HSM no CCE confused but no distress reduced ROM TAMMY NOGUERA Mar 23, 2017 11:55
[2017-03-23 12:00] VITALS: BP 115/59
[2017-03-23 16:00] VITALS: BP 101/59
[2017-03-23] MEDS ORDERED: CARDIZEM CD180 MG ORAL (16:32)
[2017-03-23 20:00] VITALS: BP 91/53
[2017-03-24] VITALS: BP 95/55
[2017-03-24 04:00] VITALS: BP 96/68
[2017-03-24] MEDS: NovoLOG Insulin Flexpen SUBQ SCH (06:26)
[2017-03-24 08:00] VITALS: BP 111/75
[2017-03-24 08:11] VITALS: BP 111/75
[2017-03-24] MEDS: Heparin 5000 units/ml inj SUBQ SCH (08:11)
[2017-03-24] MEDS: dilTIAZem HCl CD 180mg cap ORAL SCH (08:11)
--- NOTE | 2017-03-24 09:37 | General Progress Note ---
Assessment/Plan Assessment/Plan IMPRESSION persistent hypoglycemia, likely exogenous due to medications chronic lung disease pneumonia dementia urinary incontinence VRE colonized PLAN on cardizem hospice per family request being arranged address code status awaiting disposition impression, plan, and exam edited and reviewed in detail care discussed with RN Subjective Allergies: Coded Allergies: No Known Allergies (Verified , 09/12/10) Subjective awaiting discharge Objective Last 24 Hour Vital Signs Date Time Temp Pulse Resp B/P (MAP) Pulse Ox O2 Delivery O2 Flow Rate FiO2 03/24/17 08:11 78 111/75 03/24/17 08:00 97.9 78 19 111/75 99 Nasal Cannula 2.0 03/24/17 04:00 100 03/24/17 04:00 97.2 64 16 96/68 99 03/24/17 00:00 97.2 58 20 95/55 98 03/24/17 00:00 91 03/23/17 20:00 97.7 61 20 91/53 95 03/23/17 20:00 91 03/23/17 16:00 99 03/23/17 16:00 97.0 69 18 101/59 99 Nasal Cannula 2.0 03/23/17 14:06 96 115/59 03/23/17 12:00 97.1 96 16 115/59 99 Nasal Cannula 2.0 03/23/17 12:00 108 Intake and Output 03/23/17 03/24/17 19:00 07:00 Intake Total 250 ml Output Total 300 ml 800 ml Balance -50 ml -800 ml Intake Oral 250 ml Output Urine Total 300 ml 800 ml # Voids 1 # Bowel Movements 2 Height (Feet): 6 Height (Inches): 0.00 Weight (Pounds): 155 Objective WDWN NAD clear breath sounds bilaterally without rhonchi or wheeze S1S2 irregular without MRG- rate controlled NABS nontender no HSM no CCE confused but no distress reduced ROM TAMMY NOGUERA Mar 24, 2017 09:37
[2017-03-24] MEDS ORDERED: Tubing IV Secondary IV ONE (10:29)
--- NOTE | 2017-03-24 10:52 | General Progress Note ---
Assessment/Plan Problem List: (1) Pulmonary fibrosis ICD Codes: J84.10 - Pulmonary fibrosis, unspecified SNOMED: 02265954 (2) Hypoxia ICD Codes: R09.02 - Hypoxemia SNOMED: 992784619 (3) HCAP (healthcare-associated pneumonia) ICD Codes: J18.9 - Pneumonia, unspecified organism SNOMED: 699116350 Status: stable, progressing Assessment/Plan monitor off abx cards follow up resp care/o2 encourage pos monitor BS encourage pos rate control stable for dc Subjective ROS Limited/Unobtainable: Yes Constitutional: Reports: malaise, weakness HEENT: Reports: no symptoms Cardiovascular: Reports: no symptoms Respiratory: Reports: no symptoms Gastrointestinal/Abdominal: Reports: no symptoms Genitourinary: Reports: no symptoms Neurologic/Psychiatric: Reports: pre-existing deficit Endocrine: Reports: no symptoms Hematologic/Lymphatic: Reports: no symptoms Allergies: Coded Allergies: No Known Allergies (Verified , 09/12/10) All Systems: reviewed and negative except above Subjective events noted. appeal denied. HR better controlled. no distress. po intake is better Objective Last 24 Hour Vital Signs Date Time Temp Pulse Resp B/P (MAP) Pulse Ox O2 Delivery O2 Flow Rate FiO2 03/24/17 08:11 78 111/75 03/24/17 08:00 97.9 78 19 111/75 99 Nasal Cannula 2.0 03/24/17 08:00 92 03/24/17 04:00 100 03/24/17 04:00 97.2 64 16 96/68 99 03/24/17 00:00 97.2 58 20 95/55 98 03/24/17 00:00 91 03/23/17 20:00 97.7 61 20 91/53 95 03/23/17 20:00 91 03/23/17 16:00 99 03/23/17 16:00 97.0 69 18 101/59 99 Nasal Cannula 2.0 03/23/17 14:06 96 115/59 03/23/17 12:00 97.1 96 16 115/59 99 Nasal Cannula 2.0 03/23/17 12:00 108 Intake and Output 03/23/17 03/24/17 19:00 07:00 Intake Total 250 ml Output Total 300 ml 800 ml Balance -50 ml -800 ml Intake Oral 250 ml Output Urine Total 300 ml 800 ml # Voids 1 # Bowel Movements 2 Height (Feet): 6 Height (Inches): 0.00 Weight (Pounds): 155 Objective General Appearance: WD/WN, alert Neck: supple Cardiovascular: regular rhythm Respiratory/Chest: chest wall non-tender, lungs clear, normal breath sounds, no respiratory distress Abdomen: normal bowel sounds, non tender, soft, no organomegaly Edema: no edema noted Arm (L), no edema noted Arm (R), no edema noted Leg (L), no edema noted Leg (R), no edema noted Pedal (L), no edema noted Pedal (R), no edema noted Generalized Neurologic: alert, responsive AJIT SANDERS Mar 24, 2017 10:52
--- NOTE | 2017-03-25 02:00 | Progress Note ---
DATE: 03/24/2017 CARDIOLOGY PROGRESS NOTE SUBJECTIVE: The patient has no chest pain. Monitored rhythm reveals sinus with atrial ectopy. Rates are controlled. OBJECTIVE: VITAL SIGNS: Blood pressure 95/55 to 111/75, heart rate 58-100, respiratory rate 16-20, afebrile. LUNGS: Coarse breath sounds. Few rhonchi. HEART: Regular rhythm and rate. Normal S1, S2. ABDOMEN: Soft. EXTREMITIES: No edema. IMPRESSION: 1. Pulmonary fibrosis with chronic lung disease. 2. Pneumonia, recovering. 3. Multifocal atrial tachycardia, now rate controlled. PLAN: 1. Continue diltiazem. 2. Supplemental oxygen. 3. Respiratory hygiene. 4. Hospice consideration per family members. Khoa Hoang M.D. DR: Cezar JOB#: [id number] CC:
--- NOTE | 2017-03-31 20:20 | Diagnostic Imaging Report ---
APPROVED REPORT CPT Code: 87845 Present Symptoms Lower Extremity Pain: Comments: R/O DVT. BILATERAL LOWER EXTREMITY VENOUS DUPLEX: Imaging reveals a patent deep venous system bilaterally. There is no evidence of thrombus within the femoral, popliteal or tibial segments. The greater saphenous veins are also within normal limits. Doppler indicates normal spontaneous flow within these segments.
== END 2017-03-24 10:30 | disposition home health service (06) | DRG 193 ==
LOC: EMR 17:50 → EDBEDREQ 03-16 06:06 → 2E 03-16 06:46
DX: J18.9 Pneumonia, unspecified organism (principal); I50.33 Acute on chronic diastolic (congestive) heart failure; E44.0 Moderate protein-calorie malnutrition; E11.649 Type 2 diabetes mellitus with hypoglycemia without coma; J84.10 Pulmonary fibrosis, unspecified; I47.1 Supraventricular tachycardia; F01.50 Vascular dementia, unspecified severity, without behavioral disturbance, psychotic disturbance, mood disturbance, and anxiety; R32 Unspecified urinary incontinence; Z68.21 Body mass index [BMI] 21.0-21.9, adult; J40 Bronchitis, not specified as acute or chronic; R09.02 Hypoxemia
CPT/HCPCS: 36415; 36600; 71045; 78579; 78580; 80048; 80053; 81003; 82553; 82803; 82962; 83605; 83735; 83880; 84484; 85025; 87040; 87081; 93005; 93306; 93970; 94640; 94664; 94760; 99291; A9503; J1815